=== PATIENT | male | born 1945 | race Caucasian/White ===

== ENCOUNTER 2020-03-30 11:11 | Outpatient (REF) | payer MEDICARE, SELFPAY ==
[2020-03-30 13:31] LABS: INTERNATIONAL NORM RATIO 2.3 (0.9-1.1); Prothrombin Time 27.4 SEC (10.8-13.0)
[2020-03-30 13:34] LABS: Partial Thromboplastin Time 48.9 SEC (24.1-38.0)
== END 2020-03-30 11:12 | disposition home or self-care (01) ==
LOC: HO.LABR 11:11
PROVIDERS: PCP Internal Medicine; Visit Provider Internal Medicine Cardiovascular Disease
DX: I48.19 Other persistent atrial fibrillation (principal); I48.20 Chronic atrial fibrillation, unspecified
CPT/HCPCS: 36415; 85610; 85730

== ENCOUNTER 2020-04-18 06:08 | Outpatient (REF) | payer MEDICARE, SELFPAY ==
[2020-04-18 07:37] LABS: Imm Gran Abs Auto 0.02 X10*3/uL (0.00-0.03); Imm Gran Pct Auto 0.3 % (0.0-0.4); MANUAL DIFF FLAG SCAN; PLT CLUMP 1; SCAN SMEAR FLAG 1
[2020-04-18 07:39] LABS: Basophils Percent Auto 0.2 % (0-2); Eosinophils Absolute Auto 0.1 X10*3/uL (0.0-0.4); Eosinophils Percent Auto 2.1 % (0-4); Hematocrit 40.8 % (42-52); Hemoglobin 13.9 g/dl (14.0-18.0); Lymphocytes Absolute Auto 1.9 X10*3/uL (1.2-4.9); Lymphocytes Percent Auto 32.9 % (20-40); Mean Corpuscular HGB Conc 34.1 g/dl (31.0-36.0); Mean Corpuscular Hemoglobin 30.9 pg (27.0-33.0); Mean Corpuscular Volume 90.7 fL (80-98); Mean Platelet Volume 11.2 fL (9.4-12.4); Monocytes Absolute Auto 0.5 X10*3/uL (0.1-1.2); Monocytes Percent Auto 8.9 % (2-11); Neutrophils Absolute Auto 3.2 X10*3/uL (2.0-8.3); Neutrophils Percent Auto 55.6 % (45-73); Platelet Count 131 X10*3/uL (160-400); Red Cell Distribution Width 14.6 % (11.0-16.0); White Blood Count 5.7 X10*3/uL (4.8-10.8)
[2020-04-18 07:54] LABS: Alanine Aminotransferase 35 U/L (0-40); Albumin Level 4.2 g/dL (3.5-5.0); Alkaline Phosphatase 88 U/L (39-117); Anion Gap 12 (12-20); Aspartate Amino Transferase 30 U/L (5-37); Bilirubin Total 0.6 mg/dL (0.0-1.0); Blood Urea Nitrogen 27 mg/dL (9-16); Calcium 9.9 mg/dL (8.4-10.2); Carbon Dioxide 26 mmol/L (22-29); Chloride 104 mmol/L (96-108); Cholesterol 141 mg/dL; Estimated Glomerular Filt Rate 46; Glucose Fasting 99 mg/dL (60-99); HDL Cholesterol 33 mg/dL; LDL Cholesterol Calculated 63 mg/dl; Potassium 4.1 mmol/l (3.3-5.1); Sodium 138 mmol/L (135-145); Triglycerides 228 mg/dL
[2020-04-18 08:15] LABS: PSA,Total (Free>4and<10) 3.67 ng/mL (0.00-4.00); Thyroid Stimulating Hormone 1.94 uIU/mL (0.32-4.0); Vitamin D 25-OH Total 34.4 ng/mL (>30)
== END 2020-04-18 06:09 | disposition home or self-care (01) ==
LOC: HO.LAB 06:08
PROVIDERS: PCP Internal Medicine; Visit Provider Internal Medicine
DX: I10 Essential (primary) hypertension (principal); E78.5 Hyperlipidemia, unspecified; E03.9 Hypothyroidism, unspecified; M1A.9XX0 Chronic gout, unspecified, without tophus (tophi); N40.0 Benign prostatic hyperplasia without lower urinary tract symptoms; I48.20 Chronic atrial fibrillation, unspecified; K21.9 Gastro-esophageal reflux disease without esophagitis; N20.0 Calculus of kidney; K40.90 Unilateral inguinal hernia, without obstruction or gangrene, not specified as recurrent
CPT/HCPCS: 36415; 80053; 80061; 82306; 84153; 84443; 85025

== ENCOUNTER → 2020-04-24 15:21 | Outpatient (BNVA) | payer MEDICARE, SELFPAY | PROVIDERS: PCP Internal Medicine; Visit Provider Surgery | DX: K40.90 Unilateral inguinal hernia, without obstruction or gangrene, not specified as recurrent (principal) | CPT/HCPCS: 99202 ==

== ENCOUNTER 2020-06-11 11:32 | Outpatient (REF) | payer MEDICARE, SELFPAY ==
[2020-06-11 12:20] LABS: COVID-19 Test Negative (Negative)
== END 2020-06-11 11:33 | disposition home or self-care (01) ==
LOC: HO.LAB 11:32
PROVIDERS: Visit Provider Internal Medicine
DX: Z20.822 Contact with and (suspected) exposure to COVID-19 (principal)
CPT/HCPCS: 36415; 87635; C9803

== ENCOUNTER → 2020-08-01 09:26 | Outpatient (BNVA) | payer MEDICARE, SELFPAY | PROVIDERS: PCP Internal Medicine; Visit Provider Surgery | DX: K40.90 Unilateral inguinal hernia, without obstruction or gangrene, not specified as recurrent (principal) | CPT/HCPCS: 99212 ==

== ENCOUNTER 2020-09-20 06:02 | Day surgery (SDC) | payer MEDICARE, SELFPAY ==
[2020-09-20 06:10] VITALS: BP 137/84; PULSE 102; RESP 18; TEMP 36.4; O2SAT 98; BMI 28.7
[2020-09-20] MEDS: Lactated Ringers 1,000 ML 100 ML IVCONT (06:34)
[2020-09-20 06:42] LABS: INTERNATIONAL NORM RATIO 1.1 (0.9-1.1); Prothrombin Time 12.5 SEC (10.8-13.0)
--- NOTE | 2020-09-20 07:24 | HO.ANESPROP2 ---
FORM[facility]LY [facility] Active Problems Active Problems: All Active Problems (Updated 09/13/20 @ 14:32 by Priyanka Lowe) Left inguinal hernia (Acute) Nephrolithiasis (Acute) Atrial fibrillation (Acute) Past Medical History Medical History (Updated 09/13/20 @ 14:32 by Priyanka Lowe) Atrial fibrillation Hypertension Hypothyroid Nephrolithiasis On anticoagulant therapy Family History Family History Mother History of lung cancer Surgical History Surgical History (Updated 09/13/20 @ 14:32 by Priyanka Lowe) History of arthroscopy of left knee History of inguinal hernia repair History of umbilical hernia repair History of vasectomy Social History Social History Alcohol intake: current Alcohol intake frequency: a few times a week Smoking Status: Never smoker Smoking Quit Date: 1969 Use of substances other than those prescribed or required for medical reasons: No Have you been hit, kicked, punched, or otherwise hurt by someone within the past year? If so, by whom?: No Advance Directives Information Provided: No Recently lost weight without trying: No Meds Allergies Allergy/AdvReac Type Severity Reaction Status Date / Time No Known Allergies Allergy Verified 09/20/20 06:23 [No Known Allergies*] Active Medications: Current Medications Generic Name Dose Route Start Last Admin Trade Name Freq PRN Reason Stop Dose Admin Lactated Ringer's 1,000 mls @ 20 mls/hr 09/19/20 14:15 Lr IVCONT .Q24H LINDA Lactated Ringer's 1,000 mls @ 100 mls/hr 09/20/20 06:00 09/20/20 06:34 Lr IVCONT 100 mls/hr .Q10H LINDA Administration Home Medications Medication Instructions Recorded Confirmed Last Taken Type allopurinol 300 mg tablet 300 mg PO DAILY 04/24/20 09/13/20 Unknown History atenolol 25 mg tablet 37.5 mg PO DAILY 04/24/20 09/13/20 09/20/20 05:00 History atorvastatin 20 mg tablet 20 mg PO DAILY 04/24/20 09/13/20 Unknown History fenofibrate nanocrystallized 48 mg 48 mg PO DAILY 04/24/20 09/13/20 Unknown History tablet levothyroxine 75 mcg tablet 75 mcg PO DAILY 04/24/20 09/13/20 09/20/20 05:00 History losartan 100 mg tablet 50 mg PO DAILY tab 04/24/20 09/13/20 Unknown History omeprazole 20 mg capsule,delayed 20 mg PO DAILY 04/24/20 09/13/20 09/20/20 05:00 History release tamsulosin 0.4 mg capsule 0.4 mg PO DAILY 04/24/20 09/13/20 Unknown History warfarin 5 mg tablet 5 mg PO DAILY 04/24/20 09/20/20 09/13/20 History Exam Exam Date and Time: September 20, 2020 0724 Height,Weight and Vital Signs: Height 5 ft 7.5 in Weight 84.368 kg Last Vital Signs Temp 97.6 F 09/20/20 06:10 Pulse 102 H 09/20/20 06:10 Resp 18 09/20/20 06:10 BP 137/84 09/20/20 06:10 Pulse Ox 98 09/20/20 06:10 Pertinent Lab Results Pertinent Lab Results: Laboratory Tests 09/20/20 06:16 PT 12.5 D INR 1.1 Airway Mallampati Class: III TM Dist: >3cm Neck ROM: Full Loose/Missing/Broken Teeth: Yes Heart: Afib Assessment and Plan Assessment Anesthesia Assessment: Anesthesia Plan Discussed and Chart Reviewed Final Anesthetic Review NPO: Yes ASA Class: III Final Preanesthetic Review: No Changes in Pt Med Stat, Meds/Allgs Chart Reviewed, Consent Obtained/Reviewed and Anes Risks/Benef Reviewed Patient Risk: Intermediate Procedure Risk: Low Anesthetic Plan Anesthetic Plan: GA Disposition: Standard PACU
--- NOTE | 2020-09-20 09:18 | P.OP_ITS ---
Operative Note Operative Note Date of Service: 09/20/20 Narrative: Preoperative diagnosis: Left inguinal hernia Postoperative diagnosis: Same Procedure: Repair of left inguinal hernia Surgeon: Zenon Allen MD Network Management Specialist: None Anesthesia: General LMA Indications for procedure: 75-year-old male patient with a previous history of a right inguinal hernia now presenting with a lump in the left groin consistent with a left inguinal hernia Operative findings:. Left direct inguinal hernia Specimen: None Estimated blood loss: 10 mL Complications: None Procedure details: Patient was brought to the OR and placed in a supine position. After administering general anesthesia the patient's abdomen was prepped with ChloraPrep and draped in a sterile fashion. A surgical time-out was called the consent confirmed. Patient received preoperative antibiotics and Venodyne boots were in place. Local anesthesia was applied to the periumbilical skin to the right of midline and a transverse incision made with scalpel. A 10 mm incision was then created. The incision was carried down to the anterior rectus sheath. This was then incised with a scalpel dissection with a ribbon retractor was used to enter into the preperitoneal space. A dilating balloon was then inserted and directed towards the pubic tubercle. This was then inflated with 25 pumps of the bulb. This was left in place for 30 seconds and then deflated. The balloon was removed and a structural balloon inserted. This was inflated with 4 pumps of the bulb. This was then retracted into place and locked. CO2 was then insufflated to a pressure of 15 mm of mercury. Two 5 mm trocars were placed in the lower midline. Patient was placed in a Trendelenburg position and dissection begun from medial to lateral starting at the pubic tubercle and extending laterally. A direct left inguinal hernia was identified and the contents reduced. Dissection along the internal ring however was difficult due to patient breathing. After a period of dissection procedure was aborted due to lack of abdominal relaxation. Procedure was then converted to an open hernia repair. Local anesthesia consisting of 0.5% Sensorcaine with epinephrine was infiltrated over the left inguinal ligament. Incision was then made in oblique fashion over the inguinal ligament. This carried out through subcutaneous tissue past Marina's fashion up to the external oblique aponeurosis. Additional local was infiltrated below the external oblique aponeurosis. This was then incised with a scalpel wide with the Metzenbaum scissors. Spermatic cord was then dissected free from the surrounding inguinal canal and retracted using a Raman drain. The floor of the inguinal canal was examined and was found to have a direct inguinal hernia. Fibers of the cremasteric muscle were and no indirect sac could be identified. Fibers of the internal oblique aponeurosis and transversalis aponeurosis were divided with electrocautery and the preperitoneal space entered. This was then widened with an open Ray-Carly sponge. A large PHS mesh was then obtained. The circular underlay was deployed into the preperitoneal space. It was then secured to the pubic tubercle, conjoined tendon, and shelving edge of the inguinal ligament using 0 Polysorb sutures. A slit was made in the mesh and the mesh wrapped around the spermatic cord at the internal ring. This was secured to the shelving edge using 0 Polysorb suture. Wounds were then irrigated and suctioned dry. No bleeding was identified at this time. The periumbilical incisions fascia was closed using a [id number] 0 Polysorb suture. External oblique aponeurosis was then closed using a running 2 0 Polysorb suture. Marina's fascia and dermis reapproximated using interrupted 3-0 Polysorb sutures. Skin was then closed using a running subcuticular 4-0 Polysorb suture. Steri-Strips 2 x 2 gauze and Tegaderm were then applied. The patient tolerated the procedure well. Sponge, instrument, needle counts reported as correct. Patient was transferred to PACU in stable condition.
[2020-09-20 09:24] VITALS: BP 127/77; PULSE 96; RESP 16; TEMP 36.2; O2SAT 95
[2020-09-20 09:29] VITALS: BP 123/78; PULSE 107; RESP 18; O2SAT 94
[2020-09-20 09:34] VITALS: BP 121/86; PULSE 95; RESP 16; O2SAT 94
[2020-09-20 09:39] VITALS: BP 124/87; PULSE 104; RESP 20; O2SAT 95
[2020-09-20 09:54] VITALS: BP 119/77; PULSE 88; RESP 18; O2SAT 95
== END 2020-09-20 10:46 | disposition home or self-care (01) ==
PROVIDERS: Internal Medicine; PCP Internal Medicine; Visit Provider Surgery
PROC: (CPT 49650; principal; 2020-09-20 07:30)
DX: K40.90 Unilateral inguinal hernia, without obstruction or gangrene, not specified as recurrent (principal); Z53.31 Laparoscopic surgical procedure converted to open procedure; I10 Essential (primary) hypertension; I48.19 Other persistent atrial fibrillation; Z79.01 Long term (current) use of anticoagulants; Z87.891 Personal history of nicotine dependence; Z79.899 Other long term (current) drug therapy
CPT/HCPCS: 49505; 36415; 85610; C1727; C1781; J0690; J1100; J1170; J2370; J2405; J3010

== ENCOUNTER → 2020-10-04 10:35 | Outpatient (BNVA) | payer MEDICARE, SELFPAY | PROVIDERS: PCP Internal Medicine; Visit Provider Surgery | DX: Z48.815 Encounter for surgical aftercare following surgery on the digestive system (principal); Z87.19 Personal history of other diseases of the digestive system | CPT/HCPCS: 99212 ==

== ENCOUNTER → 2020-10-25 10:13 | Outpatient (BNVA) | payer MEDICARE, SELFPAY | PROVIDERS: PCP Internal Medicine; Visit Provider Surgery | DX: Z48.815 Encounter for surgical aftercare following surgery on the digestive system (principal); Z87.19 Personal history of other diseases of the digestive system | CPT/HCPCS: 99212 ==

== ENCOUNTER 2021-12-06 06:33 | Outpatient (REF) | payer MEDICARE, SELFPAY ==
[2021-12-06 06:54] LABS: MANUAL DIFF FLAG NO
[2021-12-06 07:14] LABS: Basophils Percent Auto 0.2 % (0-2); Eosinophils Absolute Auto 0.1 X10*3/uL (0.0-0.4); Eosinophils Percent Auto 0.8 % (0-4); Hematocrit 39.4 % (42.0-52.0); Hemoglobin 13.5 g/dl (14.0-18.0); Imm Gran Abs Auto 0.04 X10*3/uL (0.00-0.03); Imm Gran Pct Auto 0.5 % (0.0-0.4); Lymphocytes Absolute Auto 1.5 X10*3/uL (1.2-4.9); Mean Corpuscular HGB Conc 34.3 g/dl (31.0-36.0); Mean Corpuscular Volume 90.6 fL (80.0-98.0); Mean Platelet Volume 10.3 fL (9.4-12.4); Monocytes Percent Auto 11.5 % (2-11); Neutrophils Absolute Auto 6.1 x10*3/uL (2.0-8.3); Platelet Count 140 X10*3/uL (160-400); Red Blood Count 4.35 X10*6/uL (4.60-5.80); Red Cell Distribution Width 14.3 % (11.0-16.0); White Blood Count 8.8 X10*3/uL (4.8-10.8)
[2021-12-06 07:55] LABS: Alanine Aminotransferase 28 U/L (0-40); Albumin Level 4.2 g/dL (3.5-5.0); Alkaline Phosphatase 77 U/L (39-117); Anion Gap 14 (12-20); Aspartate Amino Transferase 30 U/L (5-37); Blood Urea Nitrogen 31 mg/dL (9-16); Calcium 10.1 mg/dL (8.4-10.2); Carbon Dioxide 28 mmol/L (22-29); Chloride 100 mmol/L (96-108); Cholesterol 140 mg/dL; Estimated Glomerular Filt Rate 41; Glucose Fasting 107 mg/dL (60-99); HDL Cholesterol 44 mg/dL; LDL Cholesterol Calculated 79 mg/dl; Potassium 4.1 mmol/L (3.3-5.1); Sodium 138 mmol/L (135-145); Total Protein 7.1 g/dL (6.5-8.0); Triglycerides 89 mg/dL; Uric Acid 6.8 mg/dL (3.4-7.0)
[2021-12-06 08:13] LABS: Prostate Specific Antigen 2.65 ng/mL (<0.05-4.0); Thyroid Stimulating Hormone 2.84 uIU/mL (0.32-4.0); Vitamin D 25-OH Total 47.3 ng/mL (>30)
[2021-12-08 05:02] LABS: Lyme Abs Screen <0.90 index
[2021-12-13 05:46] LABS: A. Phagocytophilum Ab IgG <1:64 (<1:64); A. Phagocytophilum Ab IgM <1:20 (<1:20); E. Chaffeensis Ab IgG <1:64 (<1:64); E. Chaffeensis Ab IgM <1:20 (<1:20)
== END 2021-12-06 06:34 | disposition home or self-care (01) ==
LOC: HO.LAB 06:33
PROVIDERS: Absent Provider Otolaryngology; PCP Internal Medicine; Visit Provider Internal Medicine
DX: Z12.5 Encounter for screening for malignant neoplasm of prostate (principal); A69.20 Lyme disease, unspecified; Z00.00 Encounter for general adult medical examination without abnormal findings; I48.11 Longstanding persistent atrial fibrillation; E78.5 Hyperlipidemia, unspecified; E03.9 Hypothyroidism, unspecified; K21.9 Gastro-esophageal reflux disease without esophagitis; N40.0 Benign prostatic hyperplasia without lower urinary tract symptoms; M1A.9XX0 Chronic gout, unspecified, without tophus (tophi); E55.9 Vitamin D deficiency, unspecified
CPT/HCPCS: 36415; 80053; 80061; 82306; 84153; 84443; 84550; 85025; 86617; 86618; 86666

== ENCOUNTER 2021-12-30 06:11 | Outpatient (REF) | payer MEDICARE, SELFPAY ==
[2021-12-30 06:22] LABS: MANUAL DIFF FLAG NO
[2021-12-30 07:30] LABS: Basophils Percent Auto 0.4 % (0-2); Eosinophils Absolute Auto 0.1 X10*3/uL (0.0-0.4); Eosinophils Percent Auto 2.1 % (0-4); Hematocrit 39.6 % (42.0-52.0); Hemoglobin 13.7 g/dl (14.0-18.0); Imm Gran Abs Auto 0.01 X10*3/uL (0.00-0.03); Imm Gran Pct Auto 0.2 % (0.0-0.4); Lymphocytes Absolute Auto 1.8 X10*3/uL (1.2-4.9); Lymphocytes Percent Auto 32.1 % (20-40); Mean Corpuscular HGB Conc 34.6 g/dl (31.0-36.0); Mean Corpuscular Hemoglobin 31.6 pg (27.0-33.0); Mean Corpuscular Volume 91.5 fL (80.0-98.0); Mean Platelet Volume 11.5 fL (9.4-12.4); Monocytes Absolute Auto 0.5 X10*3/uL (0.1-1.2); Monocytes Percent Auto 8.6 % (2-11); Neutrophils Absolute Auto 3.2 x10*3/uL (2.0-8.3); Neutrophils Percent Auto 56.6 % (45-73); Platelet Count 108 X10*3/uL (160-400); Red Blood Count 4.33 X10*6/uL (4.60-5.80); Red Cell Distribution Width 14.7 % (11.0-16.0); White Blood Count 5.6 X10*3/uL (4.8-10.8)
[2021-12-30 07:53] LABS: Alanine Aminotransferase 20 U/L (0-40); Albumin Level 4.2 g/dL (3.5-5.0); Alkaline Phosphatase 84 U/L (39-117); Anion Gap 13 (12-20); Aspartate Amino Transferase 26 U/L (5-37); Bilirubin Total 0.8 mg/dL (0.0-1.0); Blood Urea Nitrogen 24 mg/dL (9-16); Calcium 9.7 mg/dL (8.4-10.2); Carbon Dioxide 27 mmol/L (22-29); Chloride 105 mmol/L (96-108); Cholesterol 135 mg/dL; Estimated Glomerular Filt Rate 48; Glucose Fasting 97 mg/dL (60-99); HDL Cholesterol 36 mg/dL; LDL Cholesterol Calculated 71 mg/dl; Potassium 3.9 mmol/L (3.3-5.1); Sodium 141 mmol/L (135-145); Total Protein 6.8 g/dL (6.5-8.0); Triglycerides 141 mg/dL
[2021-12-30 08:16] LABS: Thyroid Stimulating Hormone 2.83 uIU/mL (0.32-4.0)
== END 2021-12-30 06:12 | disposition home or self-care (01) ==
LOC: HO.LAB 06:11
PROVIDERS: PCP Internal Medicine; Visit Provider Internal Medicine
DX: E03.9 Hypothyroidism, unspecified (principal); E78.5 Hyperlipidemia, unspecified; I10 Essential (primary) hypertension
CPT/HCPCS: 36415; 80053; 80061; 84443; 85025

== ENCOUNTER 2023-02-24 06:44 | Outpatient (REF) | payer MEDICARE, SELFPAY ==
[2023-02-24 07:03] LABS: MANUAL DIFF FLAG NO
[2023-02-24 07:41] LABS: Basophils Percent Auto 0.3 % (0-2); Eosinophils Absolute Auto 0.1 X10*3/uL (0.0-0.4); Eosinophils Percent Auto 1.9 % (0-4); Hemoglobin 14.2 g/dl (14.0-18.0); Imm Gran Abs Auto 0.02 X10*3/uL (0.00-0.03); Imm Gran Pct Auto 0.3 % (0.0-0.4); Lymphocytes Percent Auto 31.4 % (20-40); Mean Corpuscular HGB Conc 33.8 g/dl (31.0-36.0); Mean Corpuscular Volume 91.7 fL (80.0-98.0); Mean Platelet Volume 10.4 fL (9.4-12.4); Monocytes Absolute Auto 0.6 X10*3/uL (0.1-1.2); Monocytes Percent Auto 9.8 % (2-11); Neutrophils Absolute Auto 3.5 x10*3/uL (2.0-8.3); Neutrophils Percent Auto 56.3 % (45-73); Platelet Count 135 X10*3/uL (160-400); Red Blood Count 4.58 X10*6/uL (4.60-5.80); Red Cell Distribution Width 14.4 % (11.0-16.0); White Blood Count 6.2 X10*3/uL (4.8-10.8)
[2023-02-24 08:04] LABS: Alanine Aminotransferase 25 U/L (0-40); Albumin Level 4.2 g/dL (3.5-5.0); Alkaline Phosphatase 91 U/L (39-117); Anion Gap 14 (12-20); Aspartate Amino Transferase 30 U/L (5-37); Bilirubin Total 0.7 mg/dL (0.0-1.0); Blood Urea Nitrogen 26 mg/dL (9-16); Calcium 10.4 mg/dL (8.4-10.2); Carbon Dioxide 26 mmol/L (22-29); Chloride 106 mmol/L (96-108); Cholesterol 140 mg/dL (<200); Estimated Glomerular Filt Rate 52; Glucose Fasting 98 mg/dL (60-99); HDL Cholesterol 33 mg/dL (>40); LDL Cholesterol Calculated 62 mg/dL (<100); Potassium 4.1 mmol/L (3.3-5.1); Sodium 142 mmol/L (135-145); Total Protein 7.1 g/dL (6.5-8.0); Triglycerides 228 mg/dL (<150); Uric Acid 6.2 mg/dL (3.4-7.0)
[2023-02-24 09:11] LABS: Appearance Urine Clear; Color Urine Yellow; Glucose Urine UA Negative (Negative); Leukocyte Esterase Urine Negative (Negative); Nitrite Urine Negative (Negative); Urine Blood Negative (Negative); Urine Ketones Negative (Negative); Urine Protein Negative (Neg-Trace)
== END 2023-02-24 06:45 | disposition home or self-care (01) ==
LOC: HO.LAB 06:44
PROVIDERS: PCP Internal Medicine; Visit Provider Internal Medicine
DX: I10 Essential (primary) hypertension (principal); E78.5 Hyperlipidemia, unspecified; E03.9 Hypothyroidism, unspecified; I48.11 Longstanding persistent atrial fibrillation; M1A.9XX0 Chronic gout, unspecified, without tophus (tophi)
CPT/HCPCS: 36415; 80053; 80061; 81003; 84443; 84550; 85025

== ENCOUNTER 2024-08-11 15:01 | Outpatient (REF) | payer MEDICARE, SELFPAY ==
--- NOTE | ~2024-08-11 | XR_ITS ---
EXAMINATION: XR CHEST CLINICAL INFORMATION: Chronic cough COMPARISON: None available. TECHNIQUE: 2 views of the chest were obtained. FINDINGS: No significant abnormality is noted involving the heart, lungs, mediastinum, bony thorax or soft tissues. XR/XR chest 2V IMPRESSION: Unremarkable chest examination. Electronically signed by: Reuben Huffman MD 08/11/2024 03:59 PM EDT RP
--- OUTSIDE RECORDS SUMMARY | 2024-08-11 18:49 | XMS_ITS | Clinical Summary ---
Author Organization [facility] Address [address] [place] [phone] Phone Care Team Providers Care [employer] Grade Name Role Phone Dhruv Dolan DO Primary Care Provider [phone] Allergies No known active allergies Medications atenolol (TENORMIN) 25 MG tablet Take 1.5 tablets by mouth 1 (one) time each day Active atorvastatin (LIPITOR) 20 MG tablet Take 1 tablet by mouth at bed time Active Krill Oil ([place]-3) 500 MG capsule Active levothyroxine (SYNTHROID, LEVOTHROID) 75 MCG tablet Take 1 tablet by mouth 1 (one) time each day Active omeprazole (PriLOSEC) [address] capsule Take 1 capsule by mouth 1 (one) time each day 09/23/2017 Active Eliquis 5 MG tablet Take 5 mg by mouth 2 (two) times a day 08/13/2021 Active finasteride (PROSCAR) 5 MG tablet Take 5 mg by mouth at bed time 01/05/2022 Active Cholecalciferol 50 MCG (1999 UT) capsule Take by mouth Active tamsulosin (FLOMAX) 0.4 MG 24 hr capsule Take 1 capsule (0.4 mg total) by mouth 1 (one) time each day 90 capsule 3 08/14/2023 Active allopurinol (ZYLOPRIM) 300 MG tablet TAKE 1 TABLET BY MOUTH EVERY DAY 90 tablet 3 01/11/2024 Active fenofibrate (TRICOR) 48 MG tablet TAKE 1 TABLET BY MOUTH EVERY DAY 90 tablet 3 01/11/2024 Active allopurinol (ZYLOPRIM) 300 MG tablet Take 1 tablet (300 mg total) by mouth 1 (one) time each day 90 tablet 3 01/11/2024 Active Jardiance 10 MG tablet Take 10 mg by mouth 1 (one) time each day 11/11/2023 Active hydroCHLOROthia zide 12.5 MG tablet TAKE 1 TABLET(12.5 MG) BY MOUTH EVERY DAY 90 tablet 3 04/05/2024 Active Active Problems Problem Noted Date Diagnosed Date Coronary arteriosclerosis 05/28/20222022 Overview (05/06/2023): Last Assessment & Plan: He does have known coronary artery disease which are reviewed with him by the coronary CTA. This time his functional capacity appears to be stable I do think we need to reevaluate this we will have him go for stress echocardiogram. Depending on what this shows we may or may not need to proceed with a cardiac cath. I did tell him if he ever any discomforts in his chest that lasts for 15 to 20 minutes to call 911. History of calculus of kidney 08/21/2021 Dyslipidemia 08/21/2021 Abnormal cardiovascular function study 05/06/2023 Overview (05/06/2023): Last Assessment & Plan: Patient has an abnormal stress test indicating increased TID ratio. He has very minimal dyspnea which seems to have been an isolated incident. We discussed working up the abnormal stress test with either a diagnostic left heart cardiac catheterization or coronary CTA. We discussed risk benefits of both. At this time we elected to pursue a coronary CTA for further delineation. He understands if this is abnormal this may progress into a diagnostic cardiac catheterization. Paroxysmal atrial fibrillation 02/13/2021 Aortic valve stenosis 01/11/2021 05/06/2023 Overview (05/06/2023): Last Assessment & Plan: Echocardiogram in the past did demonstrate normal LV function with mild aortic stenosis and mild mitral regurgitation. The aortic stenosis does not sound like it is progressed significantly but he will be having a stress echo. 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 Acute nontraumatic kidney injury 08/14/2020 Anemia in chronic kidney disease 08/14/2020 Stage 3b chronic kidney disease 08/14/2020 Gout, not otherwise specified 08/14/2020 Secondary hyperparathyroidism 08/14/2020 Vitamin D deficiency, not otherwise specified Localized edema 08/14/2020 Resolved Problems Problem Noted Date Diagnosed Date Resolved Date Hypertensive disorder 08/21/20212021 Hyperlipidemia 01/11/2021 05/06/2023 07/29/2023 Overview (05/06/2023): Last Assessment & Plan: For quite some time since he had a lipid profile done I did explain to him given his coronary calcification/coronary disease is important we try to keep the LDL cholesterol below 70. I did give him a slip for lipid profile. Shortness of breath 01/11/2021 05/06/2023 07/29/19 24 Overview (05/06/2023): Last Assessment & Plan: The etiology of his dyspnea is unclear at this time. He also has increased fatigue. I am going to order an exercise nuclear stress test at first available to rule out ischemia. He should hold his atenolol the morning of. I am also going to order a new transthoracic echocardiogram. He does have mild aortic stenosis from 2018 that does sound more moderate on exam. His symptoms may be from progressive valve disease. I do not believe his symptoms are related to uncontrolled heart rates given his recent Holter monitor. Glomerulonephritis 08/14/2020 Preprocedural cardiovascular examination done 06/27/1905/06/2023 07/29/2023 Overview (05/06/2023): Last Assessment & Plan: The patient is thinking having left inguinal hernia surgery. This time she has no chest pain or shortness of breath. Functional capacity appears to be stable. He does not have aortic stenosis on exam. I did explain to him that if a person can do a certain amount of physical activity, which she states he can, but that he will be at acceptable risk for undergoing a surgical procedure. He states he understands Encounters Date Type Department Care Team Description 07/29/2024 Orders Only [facility] [address] [id number] Chaparro Arroyo MD from Last 3 Months Immunizations Name Administration Dates Next Due Influenza Split High Dose Preservative Free IM 03/01/2019 Influenza TIV (IM) 03/15/2018,04/13/2013 Influenza, Unspecified 02/01/2020,2018,03/19/2018,2016 Pfizer SARS-COV-2 06/26/2020,06/05/2020 Tdap 02/25/2015 Family History Medical History Relation Comments Diabetes Father Heart disease Father Hypertension Father Cancer Mother Relation Status Comments Father Mother Social History Tobacco Use Types Packs/Day Years Used Date Smoking Tobacco: Never Smokeless Tobacco: Never Tobacco Cessation:Counseling Given: No Alcohol Use Standard Drinks/Week Comments Yes 0 (1 standard drink = 0.6 oz pure alcohol) Alcoholic Drinks/day: Occasional social drink Sex and Gender Information Value Date Recorded Sex Assigned at Not on file Legal Sex Male 5:00 PM EST Gender Identity Not on file Sexual Orientation Not on file Last Filed Vital Signs Vital Sign Reading Time Taken Comments Blood Pressure 150/81 01/28/2024 8:40 AM EDT Pulse 66 01/28/2024 8:40 AM EDT Temperature - - Respiratory Rate - - Oxygen Saturation 98% 01/28/2024 8:40 AM EDT Inhaled Oxygen Concentration - - Weight 82.4 kg (181 lb 9.6 oz) 01/28/2024 8:40 A M EDT Height 170.2 cm (5' 7 ) 01/28/2024 8:40 AM EDT Body Mass Index 28.44 01/28/2024 8:40 AM EDT Plan of Treatment Upcoming Encounters Date Type Department Care Team (Late st Contact Info) Description 08/17/2024 9:20 AM EDT Office Visit [facility] [address] [phone] Chaparro Arroyo MD [address] [phone] Health Maintenance Due Date Last Done Comments Pneumococcal Vaccine: 65+ Years (1 of 2 - PCV) 1951 Influenza Vaccine (#1) 2024 0, 03/30/2019, 03/01/2019, Additional history exists Hepatitis B Vaccine Aged Out No longe r eligible based on patient's age to complete this topic Procedures Procedure Name Priority Date/Time Associated Diagnosis Comments PTH, INTACT Routine 07/29/2024 9:41 AM EST MAGNESIUM Routine 07/29/2024 9:41 AM EST PHOSPHATE ( PHOSPHORUS) Routine 07/29/2024 9:41 AM EST URIC ACID Routine 07/29/2024 9:41 AM EST VITAMIN D 25 HYDROXY Routine 07/29/2024 9:41 AM EST HEMOGLOBIN A1C Routine 07/29/2024 9:41 AM EST PROTEIN / CREATININE RATIO, URINE Routine 07/29/2024 9:41 AM EST COMPREHENSIVE METABOLIC PANEL Routine 07/29/2024 9:41 AM EST CBC AND DIFFERENTIAL Routine 07/29/2024 9:41 AM EST from Last 3 Months Results * Protein, Total, Random Urine w/Creatinine (Protein/Creat Ratio) (07/29/2024 9:41 AM EST) Creatinine, Ur 68.3 Not Estab. mg/dL [facility] Protein, Ur 8.3 Not Estab. mg/dL [facility] Urine Protein/Creatin ine Ratio 122 0 - 200 mg/g creat [facility] 07/29/2024 9:41 AM EST 07/29/2024 Chaparro Arroyo MD LAB URINE ORDERABLES Final Re sult Performing Organization Address City/[facility]/ZIP Co de Phone Number [facility] [address] [place] [address] * Vitamin D 25 Hydroxy (07/29/2024 9:41 AM EST) Vitamin D, 25-OH, Total 37.9 30.0 - 100.0 ng/mL [facility] Comment: Vitamin D deficiency has been defined by the [place] of [employer] and an Endocrine Society practice guideline as a level of serum 25-OH vitamin D less than 20 ng/mL (1,2). The Endocrine Society went on to further define vitamin D insufficiency as a level between 21 and 29 ng/mL (2). 1. IOM ([place] of [employer]). 2010. Dietary reference ?? intakes for calcium and D. [place]: The ?? National Academies Press. 2. Mikaela MF, Chris NC, Elle VIDAL, et al. ?? Evaluation, treatment, and prevention of vitamin D ?? deficiency: an Endocrine Society clinical practice ?? guideline. JCEM. 2010; 96(7):1911-30. 07/29/2024 9:41 AM EST 07/29/2024 Chaparro Arroyo MD LAB BLOOD ORDERABLES Final Re sult [facility] [address] [place] [address] * (ABNORMAL) CBC and Differential (07/29/2024 9:41 AM EST) WBC 6.7 3.4 - 10.8 x10E3/uL [facility] RBC 5.11 4.14 - 5.80 x10E6/uL [facility] Hemoglobin 15.9 13.0 - 17.7 g/dL [facility] Hematocrit 48.3 37.5 - 51.0 % [facility] MCV 95 79 - 97 fL [facility] MCH 31.1 26.6 - 33.0 pg [facility] MCHC 32.9 31.5 - 35.7 g/dL [facility] RDW 15.0 11.6 - 15.4 % [facility] Platelets 140(L) 150 - 450 x10E3/uL [facility] Neutrophils Relative 57 Not Estab. % [facility] Lymphocytes Relative 31 Not Estab. % [facility] Monocytes 10 Not Estab. % [facility] Eosinophils Relative 2 Not Estab. % [facility] Basophils Relative 0 Not Estab. % [facility] Neutrophils Absolute 3.8 1.4 - 7.0 x10E3/uL [facility] Lymphocytes Absolute 2.1 0.7 - 3.1 x10E3/uL [facility] Monocytes Absolute 0.7 0.1 - 0.9 x10E3/uL [facility] Eosinophils Absolute 0.1 0.0 - 0.4 x10E3/uL [facility] Basophils Absolute 0.0 0.0 - 0.2 x10E3/uL [facility] Immature Granulocytes 0 Not Estab. % [facility] Immature Grans (Absolute) 0.0 0.0 - 0.1 x10E3/uL [facility] 07/29/2024 9:41 AM EST 07/29/2024 us Chaparro Arroyo MD LAB BLOOD ORDERABLES Final Re sult Performing Organization Address [facility] Co de Phone Number [facility] [address] [place] [address] * Uric Acid (07/29/2024 9:41 AM EST) Uric Acid 5.2 3.8 - 8.4 mg/dL [facility] Comment:Therapeutic target f or gout patients: <6.0 07/29/2024 9:41 AM EST 07/29/2024 us Chaparro Arroyo MD LAB BLOOD ORDERABLES Final Re sult Performing Organization Address [facility] Co de Phone Number [facility] [address] [place] [address] * (ABNORMAL) Phosphorus (07/29/2024 9:41 AM EST) Phosphorus 2.6(L) 2.8 - 4.1 mg/dL [facility] 07/29/2024 9:41 AM EST 07/29/2024 us Chaparro Arroyo MD LAB BLOOD ORDERABLES Final Re sult Performing Organization Address City/[facility] Co de Phone Number [facility] [address] [place] [address] * PTH, Intact (07/29/2024 9:41 AM EST) PTH 28 15 - 65 pg/mL [facility] 07/29/2024 9:41 AM EST 07/29/2024 us Chaparro Arroyo MD LAB BLOOD ORDERABLES Final Re sult Performing Organization Address [facility] Co de Phone Number [facility] [address] [place] [address] * Magnesium (07/29/2024 9:41 AM EST) Magnesium 2.1 1.6 - 2.3 mg/dL [facility] 07/29/2024 9:41 AM EST 07/29/2024 us Chaparro Arroyo MD LAB BLOOD ORDERABLES Final Re sult Performing Organization Address [facility] de Phone Number [facility] [address] [place] [address] * (ABNORMAL) Hemoglobin A1c (07/29/2024 9:41 AM EST) Hemoglobin A1C 5.8(H) 4.8 - 5.6 % [facility] Comment: ? Prediabetes: 5.7 - 6.4 ? Diabetes: >6.4 ? Glycemic control for adults with diabetes: <7.0 07/29/2024 9:41 AM EST 07/29/2024 us Chaparro Arroyo MD LAB BLOOD ORDERABLES Final Re sult Performing Organization Address [facility] Co de Phone Number [facility] [address] [place] [address] * (ABNORMAL) Comprehensive Metabolic Panel (07/29/2024 9:41 AM EST) BUN 27 8 - 27 mg/dL [facility] Sodium 138 134 - 144 mmol/L [facility] Potassium 3.9 3.5 - 5.2 mmol/L [facility] Chloride 100 96 - 106 mmol/L [facility] Bicarbonate (CO2) 24 20 - 29 mmol/L [facility] Glucose 100(H) 70 - 99 mg/dL [facility] Creatinine 1.51(H) 0.76 - 1.27 mg/dL [facility] eGFR CKD-EPI CR 2020 47(L) >59 mL/min/1.7 3 [facility] BUN/Creatinine Ratio 18 10 - 24 [facility] Calcium 10.7(H) 8.6 - 10.2 mg/dL [facility] Comment:Verified by repeat analysis Total Protein 7.1 6.0 - 8.5 g/dL [facility] Albumin 4.6 3.8 - 4.8 g/dL [facility] Globulin 2.5 1.5 - 4.5 g/dL [facility] Total Bilirubin 0.7 0.0 - 1.2 mg/dL [facility] Alkaline Phosphatase 98 44 - 121 IU/L [facility] AST (SGOT) 29 0 - 40 IU/L [facility] ALT (SGPT) 22 0 - 44 IU/L [facility] 07/29/2024 9:41 AM EST 07/29/2024 us Chaparro Arroyo MD LAB BLOOD ORDERABLES Final Re sult [facility] [address] [place] [phone] from Last 3 Months Insurance [facility] Care Teams [employer] Grade Relationship Specialty Start Date End Date Dhruv Dolan DO [address] [place] [address] PCP - General 06/11/20
--- OUTSIDE RECORDS SUMMARY | 2024-08-11 18:49 | XMS_ITS | Encounter Summary ---
Author Organization [facility] Address [address] [address] Phone Care Team Providers Care Planer Hand Name Role Phone Dhruv Dolan Primary Care Provider [phone] Encounter Details Date Type Department Care Team (Late st Contact Info) Description 07/29/2024 Orders Only [facility] [place] [id number] [phone] Chaparro Arroyo MD [address] [address] Social History Tobacco Use Types Packs/Day Years Used Date Smoking Tobacco: Never Smokeless Tobacco: Never Alcohol Use Standard Drinks/Week Comments Yes 0 (1 standard drink = 0.6 oz pure alcohol) Alcoholic Drinks/day: Occasional social drink Sex and Gender Information Value Date Recorded Sex Assigned at Not on file Legal Sex Male 5:00 PM EST Gender Identity Not on file Sexual Orientation Not on file documented as of this encounter Plan of Treatment Upcoming Encounters Date Type Department Care Team (Late st Contact Info) Description 08/17/2024 9:20 AM EDT Office Visit [facility] [address] [phone] Chaparro Arroyo MD [address] [address] documented as of this encounter Procedures Procedure Name Priority Date/Time Associated Diagnosis Comments PROTEIN / CREATININE RATIO, URINE Routine 07/29/2024 9:41 AM EST VITAMIN D 25 HYDROXY Routine 07/29/2024 9:41 AM EST CBC AND DIFFERENTIAL Routine 07/29/2024 9:41 AM EST URIC ACID Routine 07/29/2024 9:41 AM EST PHOSPHATE ( PHOSPHORUS) Routine 07/29/2024 9:41 AM EST PTH, INTACT Routine 07/29/2024 9:41 AM EST MAGNESIUM Routine 07/29/2024 9:41 AM EST HEMOGLOBIN A1C Routine 07/29/2024 9:41 AM EST COMPREHENSIVE METABOLIC PANEL Routine 07/29/2024 9:41 AM EST documented in this encounter Results * PTH, Intact (07/29/2024 9:41 AM EST) PTH 28 15 - 65 pg/mL [facility] 07/29/2024 9:41 AM EST 07/29/2024 us Chaparro Arroyo MD LAB BLOOD ORDERABLES Final Re sult [facility] [address] [place] [address] * Magnesium (07/29/2024 9:41 AM EST) Magnesium 2.1 1.6 - 2.3 mg/dL [facility] 07/29/2024 9:41 AM EST 07/29/2024 us Chaparro Arroyo MD LAB BLOOD ORDERABLES Final Re sult Performing Organization Address City/[facility]/ZIP Co de Phone Number [facility] [address] [place] [address] * (ABNORMAL) Phosphorus (07/29/2024 9:41 AM EST) Phosphorus 2.6(L) 2.8 - 4.1 mg/dL [facility] 07/29/2024 9:41 AM EST 07/29/2024 Chaparro Arroyo MD LAB BLOOD ORDERABLES Final Re sult Performing Organization Address [facility] Co de Phone Number [facility] [address] [place] [address] * Uric Acid (07/29/2024 9:41 AM EST) Uric Acid 5.2 3.8 - 8.4 mg/dL [facility] Comment:Therapeutic target f or gout patients: <6.0 07/29/2024 9:41 AM EST 07/29/2024 Chaparro Arroyo MD LAB BLOOD ORDERABLES Final Re sult Performing Organization Address [facility]/ZIP Co de Phone Number [facility] [address] [place] [address] * Vitamin D 25 Hydroxy (07/29/2024 9:41 AM EST) Vitamin D, 25-OH, Total 37.9 30.0 - 100.0 ng/mL [facility] Comment: Vitamin D deficiency has been defined by the [place] of [employer] and an Endocrine Society practice guideline as a level of serum 25-OH vitamin D less than 20 ng/mL (1,2). The Endocrine Society went on to further define vitamin D insufficiency as a level between 21 and 29 ng/mL (2). 1. IOM ([place] of [employer]). 2010. Dietary reference ?? intakes for calcium and D. [place]: The ?? National Academies Press. 2. Mikaela MF, Chris ARDON, Elle VIDAL, et al. ?? Evaluation, treatment, and prevention of vitamin D ?? deficiency: an Endocrine Society clinical practice ?? guideline. JCEM. 2010; 96(7):1911-30. 07/29/2024 9:41 AM EST 07/29/2024 Chaparro Arroyo MD LAB BLOOD ORDERABLES Final Re sult Performing Organization Address City/[facility] Co de Phone Number [email or web address] [address] [place] [address] * (ABNORMAL) Hemoglobin A1c (07/29/2024 9:41 AM EST) Hemoglobin A1C 5.8(H) 4.8 - 5.6 % [facility] Comment: ? Prediabetes: 5.7 - 6.4 ? Diabetes: >6.4 ? Glycemic control for adults with diabetes: <7.0 07/29/2024 9:41 AM EST 07/29/2024 Chaparro Arroyo MD LAB BLOOD ORDERABLES Final Re sult Performing Organization Address City/[facility] Co de Phone Number [facility] [address] [place] [address] * Protein, Total, Random Urine w/Creatinine (Protein/Creat Ratio) (07/29/2024 9:41 AM EST) Creatinine, Ur 68.3 Not Estab. mg/dL [facility] Protein, Ur 8.3 Not Estab. mg/dL [facility] Urine Protein/Creatin ine Ratio 122 0 - 200 mg/g creat [facility] 07/29/2024 9:41 AM EST 07/29/2024 us Chaparro Arroyo MD LAB URINE ORDERABLES Final Re sult [facility] [address] [place] [address] * (ABNORMAL) Comprehensive Metabolic Panel (07/29/2024 9:41 AM EST) BUN 27 8 - 27 mg/dL [facility] Sodium 138 134 - 144 mmol/L [facility] Potassium 3.9 3.5 - 5.2 mmol/L [facility] Chloride 100 96 - 106 mmol/L [facility] Bicarbonate (CO2) 24 20 - 29 mmol/L [facility] Glucose 100(H) 70 - 99 mg/dL [facility] Creatinine 1.51(H) 0.76 - 1.27 mg/dL [facility] eGFR CKD-EPI CR 2020 47(L) >59 mL/min/1.7 3 [facility] BUN/Creatinine Ratio 18 10 - 24 [facility] Calcium 10.7(H) 8.6 - 10.2 mg/dL [facility] Comment:Verified by repeat analysis Total Protein 7.1 6.0 - 8.5 g/dL [facility] Albumin 4.6 3.8 - 4.8 g/dL [facility] Globulin 2.5 1.5 - 4.5 g/dL [facility] Total Bilirubin 0.7 0.0 - 1.2 mg/dL [facility] Alkaline Phosphatase 98 44 - 121 IU/L [facility] AST (SGOT) 29 0 - 40 IU/L [facility] ALT (SGPT) 22 0 - 44 IU/L [facility] 07/29/2024 9:41 AM EST 07/29/2024 us Chaparro Arroyo MD LAB BLOOD ORDERABLES Final Re sult [facility] [address] [place] [address] * (ABNORMAL) CBC and Differential (07/29/2024 9:41 AM EST) WBC 6.7 3.4 - 10.8 x10E3/uL [facility] RBC 5.11 4.14 - 5.80 x10E6/uL [facility] Hemoglobin 15.9 13.0 - 17.7 g/dL [facility] Hematocrit 48.3 37.5 - 51.0 % [facility] MCV 95 79 - 97 fL [facility] MCH 31.1 26.6 - 33.0 pg [facility] MCHC 32.9 31.5 - 35.7 g/dL [facility] RDW 15.0 11.6 - 15.4 % [facility] Platelets 140(L) 150 - 450 x10E3/uL [facility] Neutrophils Relative 57 Not Estab. % [facility] Lymphocytes Relative 31 Not Estab. % [facility] Monocytes 10 Not Estab. % [facility] Eosinophils Relative 2 Not Estab. % [facility] Basophils Relative 0 Not Estab. % [facility] Neutrophils Absolute 3.8 1.4 - 7.0 x10E3/uL [facility] Lymphocytes Absolute 2.1 0.7 - 3.1 x10E3/uL [facility] Monocytes Absolute 0.7 0.1 - 0.9 x10E3/uL [facility] Eosinophils Absolute 0.1 0.0 - 0.4 x10E3/uL [facility] Basophils Absolute 0.0 0.0 - 0.2 x10E3/uL [facility] Immature Granulocytes 0 Not Estab. % [facility] Immature Grans (Absolute) 0.0 0.0 - 0.1 x10E3/uL [facility] 07/29/2024 9:41 AM EST 07/29/2024 us Chaparro Arroyo MD LAB BLOOD ORDERABLES Final Re sult [facility] [address] [place] [address] documented in this encounter Visit Diagnoses Not on filedocumented in this encounter Care Teams Planer Hand Relationship Specialty Start Date End Date Dhruv Dolan DO [address] [place] [address], [place] PCP - General 06/11/20 documented as of this encounter
--- OUTSIDE RECORDS SUMMARY | 2024-08-11 18:49 | XMS_ITS | Encounter Summary ---
Author Organization [facility] Address [address] [place] [address] Care Team Providers Care Buildings And Grounds Director Name Role Phone Jamal Benson MD Primary Care Provider [phone] Reason for Referral * Cardiac Stress Testing (Routine) - Closed Specialty Diagnoses / Procedures Referred By Contac t Referred To Contact Cardiology Diagnoses Persistent atrial fibrillation (CMS/HCC) Procedures Cardiac holter monitor (<= 48 hours) NM ECG EXTERNAL UP TO 48 HOURS RECORDING NM ECG EXTERNAL < 48 HOURS CONTINUOUS RECORDING/STORAGE R&I BY A PHYS/QHP NM EXTERNAL ECG UP TO 48 HRS INCL RECORDING SCANNING ANLYS W REPORT Rc Knight NP [address] [place] [address] Phone: tel: fax: [facility] Referral ID Status Reason Start Date Expiration Date Visits Re quested Visits Authorized [id number] Closed 07/14/2024 07/14/2025 1 1 Reason for Visit * Reason Comments Follow-up Encounter Details Date Type Department Care Team (Late st Contact Info) Description 07/14/2024 8:40 AM EST Office Visit [facility] [address] [facility] [address] [place] [address] Rc Knight NP [address] [place] [address] Coronary artery disease, unspecified vessel or lesion type, unspecified whether angina present, unspecified whether [place] or transplanted heart (Primary Dx); Hyperlipidemia, unspecified hyperlipidemia type; Nonrheumatic aortic valve stenosis; Persistent atrial fibrillation (CMS/HCC); Hypertension, unspecified type Social History Tobacco Use Types Packs/Day Years Used Date Smoking Tobacco: Never Smokeless Tobacco: Never Tobacco Cessation:Counseling Given: Not Answered Alcohol Use Standard Drinks/Week Comments Yes 0 (1 standard drink = 0.6 oz pur e alcohol) Sex and Gender Information Value Date Recorded Sex Assigned at Not on file Legal Sex Male 3:44 AM EST Gender Identity Not on file Sexual Orientation Not on file documented as of this encounter Last Filed Vital Signs Vital Sign Reading Time Taken Comments Blood Pressure 140/80 07/14/2024 8:25 AM EST Pulse 67 07/14/2024 8:25 AM EST Temperature - - Respiratory Rate - - Oxygen Saturation 98% 07/14/2024 8:25 AM EST Inhaled Oxygen Concentration - - Weight 82.5 kg (181 lb 12.8 oz) 07/14/2024 8:25 AM EST Height 170.2 cm (5' 7 ) 07/14/2024 8:25 AM EST Body Mass Index 28.47 07/14/2024 8:25 AM EST documented in this encounter Progress Notes * Rc Knight NP - 07/14/2024 8:40 AM ESTAssociated Problem(s): Aortic valve stenosis Unchanged moderate to severe aortic stenosis. Can repeat Echocardiogram every year, or if symptoms/murmur worsens. * Rc Knight NP - 07/14/2024 8:40 AM ESTAssociated Problem(s): Persistent atrial fibrillation (CMS/HCC) Patient in Aflutter today. He reports he can not tell if he is in A flutter or not. Will order 48 holter monitor. Patient should remain rate controlled with Atenolol and Eliquis for CVS prophylaxis. Orders: Cardiac holter monitor (<= 48 hours); Future * Rc Knight NP - 07/14/2024 8:40 AM ESTAssociated Problem(s): CAD (coronary artery disease) See most recent echocardiogram results above. Continue on baby aspirin, beta butch, and statin. Adhere to a healthy cardiac diet. Instructed to call 911 or go to the emergency room should the patient begin to experience chest pain or pressure lasting greater than 10 minutes does not resolve with rest. Orders: ECG 12 lead * Rc Knight NP - 07/14/2024 8:40 AM ESTAssociated Problem(s): Hyperlipidemia Continue on current medication regiment. * Rc Knight NP - 07/14/2024 8:40 AM ESTAssociated Problem(s): Hypertension Patient has white coat syndrome, takes BP at home and values are within normal range. Continue current Medication regimen. Educated on the importance of diet lifestyle to help further assist in reducing blood pressure. The patient was encouraged to follow low-salt low-fat diet, make purposeful strides towards weight loss, and engage in routine aerobic exercise as tolerated. * Rc Knight NP - 07/14/2024 8:40 AM EST Images from the original note were not included. [facility] PRIMARY IT INFRASTRUCTURE MANAGER: Aracelis Bryant MD PCP: Jamal Benson MD HPI: HPI: Madhu Mckeon is a 78 yr. Male who presents for cardiac follow up of: 1. Coronary artery disease 2. HFpEF 3. Aortic stenosis 4. Hypertension 5. Hyperlipidemia 6. Persistent atrial fibrillation At his previous appointment he was having complaints of SOB with moderate levels of exercise. He felt that at times his breathing was abnormal. He was started on Jardiance 10 mg PO daily and had an echocardiogram. Please see the full results of the echocardiogram below. He is here for a routine cardiac follow-up. He seems to be doing well from a cardiac standpoint. Hethinks that since he started Jardiance at his previous appointment he has been feeling better. He reports an improvement in his [place]. He walk about 2-3 times per week. He goes to the gym and utilizes light work with weights. Denies chest pain, pressure, shortness of breath, dyspnea exertion, dizziness, lightheadedness, presyncope or syncope. The patient denies palpitations, peripheral edema, abdominal distention, PND or orthopnea. There have been no falls or cardiac related hospitalizations since the last office visit. He denies any abnormal bleeding. ACTIVE MEDICATIONS: Outpatient Medications Marked as Taking for the 07/14/24 encounter (Office Visit) with Rc Knight NP Medication Sig Dispense Refill allopurinoL (ZYLOPRIM) 300 mg tablet Take 1 tablet (300 mg total) by mouth 1 (one) time each day. apixaban (ELIQUIS) 5 mg tablet Take 1 tablet (5 mg total) by mouth 2 (two) times a day. 180 tablet 3 aspirin 81 mg EC tablet Take 1 tablet (81 mg total) by mouth 1 (one) time each day. atenoloL (TENORMIN) 25 mg tablet TAKE 1 AND ONE-HALF TABLETS BY MOUTH DAILY atorvastatin (LIPITOR) 20 mg tablet Take 1 tablet (20 mg total) by mouth 1 (one) time each day. cholecalciferol (VITAMIN D-3) 50 mcg (2,000 unit) capsule Take by mouth. fenofibrate (TRICOR) 48 mg tablet Take 1 tablet (48 mg total) by mouth 1 (one) time each day. finasteride (PROSCAR) 5 mg tablet Take 1 tablet (5 mg total) by mouth 1 (one) time each day. at bedtime hydroCHLOROthiazide (HYDRODIURIL) 25 mg tablet Take 1 tablet (25 mg total) by mouth 1 (one) time each day. (Patient taking differently: Take 0.5 tablets (12.5 mg total) by mouth 1 (one) time each day.) Jardiance 10 mg tablet Take 1 tablet (10 mg total) by mouth 1 (one) time each day. KRILL OIL ORAL Take 750 mg by mouth 1 (one) time each day. levothyroxine sodium (TIROSINT) 75 mcg capsule daily. multivitamin with minerals (Multiple Vitamin-Minerals) tablet Take by mouth. omeprazole (PRILOSEC) 20 mg tablet,delayed release (DR/EC) daily. tamsulosin (FLOMAX) 0.4 mg 24 hr capsule Take 1 capsule (0.4 mg total) by mouth 1 (one) time each day. PAST MEDICAL HISTORY: Patient Active Problem List Diagnosis Shortness of breath Aortic valve stenosis Persistent atrial fibrillation (CMS/HCC) Hyperlipidemia Hypertension CAD (coronary artery disease) ALLERGIES: No Known Allergies SOCIAL HISTORY: Social History Tobacco Use Smoking status: Never Smokeless tobacco: Never Substance Use Topics Alcohol use: Yes PHYSICAL EXAM: Vitals: 07/14/24 0825 BP: (!) 140/80 BP Location: Left arm Patient Position: Sitting BP Cuff Size: Adult Pulse: 67 SpO2: 98% Weight: 82.5 kg (181 lb 12.8 oz) Height: 1.702 m (67 ) Physical Exam Constitutional: General: He is not in acute distress. HENT: Head: Normocephalic. Right Ear: External ear normal. Left Ear: External ear normal. Nose: Nose normal. Eyes: Conjunctiva/sclera: Conjunctivae normal. Neck: Vascular: No carotid bruit. Cardiovascular: Rate and Rhythm: Normal rate and regular rhythm. Pulses: Normal pulses. Heart sounds: Murmur heard. No friction rub. No gallop. Pulmonary: Effort: Pulmonary effort is normal. Breath sounds: Normal breath sounds. No wheezing, rhonchi or rales. Chest: Chest wall: No tenderness. Abdominal: General: There is no distension. Musculoskeletal: General: No swelling or tenderness. Cervical back: Neck supple. Right lower leg: No edema. Left lower leg: No edema. Skin: General: Skin is warm and dry. Neurological: General: No focal deficit present. Mental Status: He is alert and oriented to person, place, and time. Psychiatric: Mood and Affect: Mood normal. Behavior: Behavior normal. Thought Content: Thought content normal. Judgment: Judgment normal. EKG: No results found for this or any previous visit (from the past 4464 hours). TESTING: ASSESSMENT/PLAN: Assessment & Plan Coronary artery disease, unspecified vessel or lesion type, unspecified whether angina present, unspecified whether [place] or transplanted heart See most recent echocardiogram results above. Continue on baby aspirin, beta butch, and statin. Adhere to a healthy cardiac diet. Instructed to call 911 or go to the emergency room should the patient begin to experience chest pain or pressure lasting greater than 10 minutes does not resolve with rest. Orders: ECG 12 lead Hyperlipidemia, unspecified hyperlipidemia type Continue on current medication regiment. Nonrheumatic aortic valve stenosis Unchanged moderate to severe aortic stenosis. Can repeat Echocardiogram every year, or if symptoms/murmur worsens. Persistent atrial fibrillation (CMS/HCC) Patient in Aflutter today. He reports he can not tell if he is in A flutter or not. Will order 48 holter monitor. Patient should remain rate controlled with Atenolol and Eliquis for CVS prophylaxis. Orders: Cardiac holter monitor (<= 48 hours); Future Hypertension, unspecified type Patient has white coat syndrome, takes BP at home and values are within normal range. Continue current Medication regimen. Educated on the importance of diet lifestyle to help further assist in reducing blood pressure. The patient was encouraged to follow low-salt low-fat diet, make purposeful strides towards weight loss, and engage in routine aerobic exercise as tolerated. Thank you for allowing us to participate in the care of this patient. The patient will follow up in6 months, sooner PRN. As per AHA guidelines and previously established plan of care by Dr. Aracelis Bryant MD, we discussedthe following today: 1. Coronary artery disease, unspecified vessel or lesion type, unspecified whether angina present, unspecified whether [place] or transplanted heart 2. Hyperlipidemia, unspecified hyperlipidemia type 3. Nonrheumatic aortic valve stenosis 4. Persistent atrial fibrillation (CMS/HCC) 5. Hypertension, unspecified type [facility] documented in this encounter Plan of Treatment Upcoming Encounters Date Type Department Care Team (Late st Contact Info) Description 01/18/2025 9:50 AM EDT Office Visit [facility] [address] [facility] [address] [place] [address] Aracelis Bryant MD [address] [place] [address] documented as of this encounter Procedures Procedure Name Priority Date/Time Associated Diagnosis Comments ECG 12-LEAD Routine 07/14/2024 9:20 AM EST Coronary artery disease, unspecified vessel or lesion type, unspecified whether angina present, unspecified whether [place] or transplanted heart documented in this encounter Results * CARDIAC HOLTER MONITOR (REPORT GENERATED IN HOUSE) (07/27/2024 8:20 AM EST) Anatomical Region Laterality Modality Cardiac Diagnost ic Narrative 08/05/2024 4:20 PM EST [facility] [address] [facility], [id number], [place] [address] TEL: FAX: Type of Test: 48 Hour Holter Monitor Date of Test: 07/27/2024 Ordering Provider: Rc Knight NP Reason for Test: Persistent Atrial Fibrillation ?? PVCA Complaint Operator Findings: ?? 1: Atrial Flutter noted throughout recording. 2: Ventricular rate range was 40-94 BPM with an average of 65 BPM. 3: Occasional PVCs and two ventricular couplets. ??Overall ventricular ectopic burden is only 0.6%. 4: No significant pauses noted, longest R-R was 2.3 seconds at 4:15 PM. 5: Diary returned with no symptoms noted. Impression: ?? 1. ??Atrial flutter throughout the recording with controlled ventricular response rate. 2. ??No significant pauses. 3. ??No symptoms recorded. Rc Knight NP [facility] PROCEDURES F inal Result * ECG 12 lead (07/14/2024 9:20 AM EST) Ventricular Rate ECG 66 BPM GEMUSE Atrial Rate 264 BPM GEMUSE QRS Duration 90 ms GEMUSE Q-T Interval 428 ms GEMUSE QTc 448 ms GEMUSE P Wave [place] 71 degrees GEMUSE R [place] 34 degrees GEMUSE T [place] 53 degrees GEMUSE ECG Interpretation Atrial flutter with 4:1 A-V conduction Poor R wave progression -Possible ??Septal infarct , age undetermined Nonspecific ST and T wave abnormality Abnormal ECG When compared with ECG of 02-FEB-2021 07:33, No significant changes are noted Confirmed by ARACELIS BRYANT ([id number]) on 07/27/2024 9:19:38 AM GEMUSE 07/14/2024 8:38 AM EST 07/27/2024 9:19 AM EST Rc Knight NP ECG ORDERABLES Edited Result - Final GEMUSE documented in this encounter Visit Diagnoses Diagnosis Coronary artery disease, unspecified vessel or lesion type, unspecified whether angina present, unspecified whether [place] or transplanted heart- Primary Hyperlipidemia, unspecified hyperlipidemia type Nonrheumatic aortic valve stenosis Persistent atrial fibrillation (CMS/HCC) Atrial fibrillation Hypertension, unspecified type Persistent atrial fibrillation (CMS/HCC) Atrial fibrillation documented in this encounter Discontinued Medications Medication Sig Discontinue Reason Start Date End Da te apixaban (Eliquis) 5 mg tablet Take 1 tablet (5 mg total) by mouth 2 (two) times a day. Entered in Error 08/13/2021 07/14/2024 documented as of this encounter Historical Medications * This list may reflect changes made after this encounter. aspirin 81 mg EC tablet Take 1 tablet (81 mg total) by mouth 1 (one) time each day. added in this encounter Care Teams Buildings And Grounds Director Relationship Specialty Start Date End Date Jamal Benson MD [facility] [address] [place] [address] [address] [place], [place] [address] PCP - General Internal Medicine 06/27/24 documented as of this encounter
--- OUTSIDE RECORDS SUMMARY | 2024-08-11 18:49 | XMS_ITS | Encounter Summary ---
Author Organization [facility] Address [address] [place] [address] Care Team Providers Care Director Of Business Development Name Role Phone Jamal Benson MD Primary Care Provider [phone]- [phone] Reason for Visit * Reason Comments 48 Hour Holter Monitor * Cardiac Stress Testing (Routine) - Closed Specialty Diagnoses / Procedures Referred By Contac t Referred To Contact Cardiology Diagnoses Persistent atrial fibrillation (CMS/HCC) Procedures Cardiac holter monitor (<= 48 hours) IN ECG EXTERNAL UP TO 48 HOURS RECORDING IN ECG EXTERNAL < 48 HOURS CONTINUOUS RECORDING/STORAGE R&I BY A PHYS/QHP IN EXTERNAL ECG UP TO 48 HRS INCL RECORDING SCANNING ANLYS W REPORT Rc Knight NP [address] [place] [address] Phone: tel: fax: [facility] Referral ID Status Reason Start Date Expiration Date Visits Re quested Visits Authorized [id number] Closed 07/14/2024 07/14/2025 1 1 Encounter Details Date Type Department Care Team (Latest Contact Info) Description 07/27/2024 8:30 AM EST Ancillary Procedure [facility] - [facility] [address] [address] Persistent atrial fibrillation (CMS/HCC) Social History Tobacco Use Types Packs/Day Years [...] on file documented as of this encounter Progress Notes * Rc Knight NP - 07/27/2024 8:30 AM EST Can you let the patient know that he was in atrial flutter throughout the entire recording. Heart rate was controlled. Continue on current medication regiment. documented in this encounter Plan of Treatment Upcoming Encounters Date Type Department Care Team (Late st Contact Info) Description 01/18/2025 9:50 AM EDT Office Visit [facility] [address] 300 [facility] [address] [place] [address] Aracelis Jacobo MD [address] [place] [address] documented as of this encounter Procedures Procedure Name Priority Date/Time Associated Diagnosis Comments CARDIAC HOLTER MONITOR (REPORT GENERATED IN HOUSE) Routine 07/27/2024 8:20 AM EST Persistent atrial fibrillation (CMS/HCC) documented in this encounter Results * CARDIAC HOLTER MONITOR (REPORT GENERATED IN HOUSE) (07/27/2024 8:20 AM EST) Anatomical Region Laterality Modality Cardiac Diagnost ic Narrative 08/05/2024 4:20 PM EST [facility] [address] [facility], [id number], [place] [address] TEL: FAX: Type of Test: 48 Hour Holter Monitor Date of Test: 07/27/2024 Ordering Provider: Rc Knight NP Reason for Test: Persistent Atrial Fibrillation ?? PVCA Manual Control Auger Press Operator Findings: ?? 1: Atrial Flutter noted [...] CV CARDIAC SERVICES PROCEDURES F inal Result documented in this encounter Visit Diagnoses Diagnosis Persistent atrial fibrillation (CMS/[facility]) Atrial fibrillation documented in this encounter Care Teams Director Of Business Development Relationship Specialty Start Date End Date Jamal Benson MD [facility] [address] [place], [place] [address] PCP - General Internal Medicine 06/27/24 documented as of this encounter
--- OUTSIDE RECORDS SUMMARY | 2024-08-11 18:49 | XMS_ITS | Clinical Summary ---
Author Organization [address] [place] [address] [place] [phone] Phone Care Team Providers Care Robotype Operator Name Role Phone Jamal Benson MD Primary Care Provider +1- [phone] Allergies No known active allergies Medications apixaban (ELIQUIS) 5 mg tablet Take 1 tablet (5 mg total) by mouth 2 (two) times a day. 180 tablet 3 04/26/20 24 Active allopurinoL (ZYLOPRIM) 300 mg tablet Take 1 tablet (300 mg total) by mouth 1 (one) time each day. Active atenoloL (TENORMIN) 25 mg tablet TAKE 1 AND ONE-HALF TABLETS BY MOUTH DAILY Active atorvastatin (LIPITOR) 20 mg tablet Take 1 tablet (20 mg total) by mouth 1 (one) time each day. Active fenofibrate (TRICOR) 48 mg tablet Take 1 tablet (48 mg total) by mouth 1 (one) time each day. Active finasteride (PROSCAR) 5 mg tablet Take 1 tablet (5 mg total) by mouth 1 (one) time each day. at bedtime Active hydroCHLOROthi azide (HYDRODIURIL) 25 mg tablet Take 1 tablet (25 mg total) by mouth 1 (one) time each day. Active KRILL OIL ORAL Take 750 mg by mouth 1 (one) time each day. Active levothyroxine sodium (TIROSINT) 75 mcg capsule daily. 06/13/19 21 Active omeprazole (PRILOSEC) 20 mg tablet,delayed release (DR/EC) daily. 06/06/19 21 Active tamsulosin (FLOMAX) 0.4 mg 24 hr capsule Take 1 capsule (0.4 mg total) by mouth 1 (one) time each day. 05/30/20 20 025 Active multivitamin with minerals (Multiple Vitamin-Minera ls) tablet Take by mouth. 06/06/19 21 Active cholecalcifero l (VITAMIN D-3) 50 mcg (2,000 unit) capsule Take by mouth. Active aspirin 81 mg EC tablet Take 1 tablet (81 mg total) by mouth 1 (one) time each day. Active empagliflozin (Jardiance) 10 mg tablet TAKE 1 TABLET BY MOUTH DAILY 90 tablet 3 08/06/19 25 Active apixaban (Eliquis) 5 mg tablet Take 1 tablet (5 mg total) by mouth 2 (two) times a day. 08/14/19 22 025 Discontinued(En tered in Error) Jardiance 10 mg tablet Take 1 tablet (10 mg total) by mouth 1 (one) time each day. 025 Discontinued Active Problems Problem Noted Date Diagnosed Date CAD (coronary artery disease) 04/27/2024 Assessment & Plan (07/14/2024 9:27 AM EST): See most recent echocardiogram results above. Continue on baby aspirin, beta butch, and statin. Adhere to a healthy cardiac diet. Instructed to call 911 or go to the emergency room should the patient begin to experience chest pain or pressure lasting greater than 10 minutes does not resolve with rest. Orders: ECG 12 lead Shortness of breath 01/11/2021 Overview (04/27/2024): Last Assessment & Plan: In light of recent echocardiogram showing fairly advanced diastolic dysfunction, I wonder if his shortness of breath is a presentation of exertional HFpEF more than anything. It is uncertain why he would have such pronounced HFpEF. He had an ambulatory blood pressure monitoring July that indicated good blood pressure control at home. That said, he does have some pre-existing risk factors including predominantly nonobstructive coronary disease, aortic stenosis, hypertension, A- fib. I would like to trial using SGLT2 inhibitor to see if this improves his symptoms over time. It may also have some renal protective properties though I am uncertain if this applies to nondiabetics. I will touch base with Dr. Arroyo his home performance laborer just to update him. I also encouraged him to start a regular aerobic exercise program- attempting 4 to 5 days a week gradually escalating pace and incline. He seems very motivated to do this. My hope is that the combination of medications and exercise will help improve symptoms over time. We are trialing Jardiance 10 mg daily. I have given him samples for a month. He will let me know if he wants to refill at that point. Side effects reviewed with the patient who verbalized understanding. Aortic valve stenosis 01/11/2021 Overview (07/14/2024): in June 2023 showing mild, concentric left ventricular hypertrophy with normal cavity size and systolic function, normal regional wall motion with an ejection fraction of 55 to 60%, normal RV size and systolic function, grade 3 diastolic dysfunction consistent with high left atrial pressure, mild left atrial enlargement, evidence of mild pulmonary hypertension, moderate aortic stenosis with dimensionless index 0.36 and a calculated aortic valve area of 1.1 cm??, mild aortic insufficiency-aortic stenosis has progressed slightly since 2020 - On 06/2024 Echo - Left ventricle cavity size is normal. There is normal wall thickness. There is normal left ventricular regional wall motion. Left ventricular systolic function is in the normal range with an ejection fraction of 60-65%. Right ventricle cavity is normal. Right ventricular systolic function is low normal. Aortic valve demonstrates moderate to severe stenosis. See measurements below. There is trace aortic insufficiency. There is evidence of increased left atrial pressure. There is borderline pulmonary hypertension. Compared with prior echocardiogram from June 2023, findings are unchanged. Unchanged moderate to severe aortic stenosis. Normal biventricular systolic function. Assessment & Plan (07/14/2024 9:27 AM EST): Unchanged moderate to severe aortic stenosis. Can repeat Echocardiogram every year, or if symptoms/murmur worsens. Hyperlipidemia 01/11/2021 Overview (04/27/2024): Last Assessment & Plan: Due to his last lipid profile in the HDL the LDL was good. He states he had recent blood work we will see if we can get a copy of this. Assessment & Plan (07/14/2024 9:27 AM EST): Continue on current medication regiment. Hypertension 08/14/2020 Overview (04/27/2024): Last Assessment & Plan: Patient has whitecoat hypertension as documented by an ambulatory blood pressure monitor which suggested good blood pressure control at home with a mean average of 120/74 mmHg performed by his home performance laborer in July 2023. Continue current medications. Assessment & Plan (07/14/2024 9:27 AM EST): Patient has white coat syndrome, takes BP at home and values are within normal range. Continue current Medication regimen. Educated on the importance of diet lifestyle to help further assist in reducing blood pressure. The patient was encouraged to follow low-salt low-fat diet, make purposeful strides towards weight loss, and engage in routine aerobic exercise as tolerated. Persistent atrial fibrillation 04/23/2020 Overview (04/27/2024): - Rate controlled and on Eliquis for CVA prophylaxis Last Assessment & Plan: Continue Eliquis for CVA prophylaxis, atenolol for rate control Assessment & Plan (07/14/2024 9:27 AM EST): Patient in Aflutter today. He reports he can not tell if he is in A flutter or not. Will order 48 holter monitor. Patient should remain rate controlled with Atenolol and Eliquis for CVS prophylaxis. Orders: Cardiac holter monitor (<= 48 hours); Future Encounters Date Type Department Care Team Description 07/27/2024 8:30 AM EST Ancillary Procedure [facility] [address] [place] [phone] Persistent atrial fibrillation (CMS/HCC) 07/14/2024 8:40 AM EST Office Visit [facility] [address] [place] [phone] Rc Knight NP Coronary artery disease, unspecified vessel or lesion type, unspecified whether angina present, unspecified whether [place] or transplanted heart (Primary Dx); Hyperlipidemia, unspecified hyperlipidemia type; Nonrheumatic aortic valve stenosis; Persistent atrial fibrillation (CMS/HCC); Hypertension, unspecified type 06/27/2024 10:00 AM EST Ancillary Procedure [facility] [address] [place] [phone] Shortness of breath; Nonrheumatic aortic (valve) stenosis from Last 3 Months Immunizations Name Administration Dates Next Due Pfizer SARS-CoV-2 COVID-19, mRNA, LNP-S, preservative free 06/26/2020,06/05/2020 Medical History Medical History Date Comments Family history of cardiovascular disease DX:Family history of cardiovascular disease Essential hypertension DX:Essent ial hypertension Hyperlipidemia DX:Hyperlipidemi a Family History Medical History Relation Name Comments CABG Father Relation Name Status Comments Father Social History Tobacco Use Types Packs/Day Years [...] on file Sexual Orientation Not on file Obstetrics History Last Filed Vital Signs Vital Sign Reading [...] Mass Index 28.47 07/14/2024 8:25 AM EST Plan of Treatment Upcoming Encounters Date Type Department Care Team (Late st Contact Info) Description 01/18/2025 9:50 AM EDT Office Visit [facility] [address] [facility] [address] [place] [address] Aracelis Bryant MD [address] [place] [address] Health Maintenance Due Date Last Done Comments Pneumococcal Vaccine: 50+ Years (1 of 2 - PCV) 1964 Zoster Vaccines (1 of 2) 1995 RSV Immunization Patients 60+ Years Old (1 - 1-dose 75+ series) 2020 Depression Screening 05/04/2022 Falls Risk Assessment 05/04/2022 Hepatitis C Screening 05/04/2022 Medicare Annual Wellness Visit 05/04/2022 Social Influencers of Health Screening 05/04/2022 COVID-19 Vaccine ( season) 2024 03/27/2021, 06/26/2020, 06/05/2020 Influenza Vaccine (#1) 2024 , 03/26/2022, 05/01/2021, Additional history exists Hypertension/CHF/CAD Annual BMP Blood Test 01/12/2025 01/13/2024, 01/13/2024 DTaP,Tdap,and Td Vaccines (2 - Td or Tdap) 02/25/2025 02/25/2015 Cholesterol Screening (Lipid Panel) 01/12/2029 01/13/2024 HIB Vaccines Aged Out No longer eligi ble based on patient's age to complete this topic HPV Vaccines Aged Out No longer eligi ble based on patient's age to complete this topic Hepatitis A Vaccines Aged Out No long er eligible based on patient's age to complete this topic Hepatitis B Vaccines Aged Out No long er eligible based on patient's age to complete this topic IPV Vaccines Aged Out No longer eligi ble based on patient's age to complete this topic MMR Vaccines Aged Out No longer eligi ble based on patient's age to complete this topic Meningococcal ACWY Vaccine Aged Out N o longer eligible based on patient's age to complete this topic Meningococcal B Vacine Aged Out No lo nger eligible based on patient's age to complete this topic RSV Immunization Patients Under 20 months Aged Out No longer eligible based on patient's age to complete this topic Varicella Vaccines Aged Out No longer eligible based on patient's age to complete this topic Procedures Procedure Name Priority Date/Time Associated Diagnosis Comments CARDIAC HOLTER MONITOR (REPORT GENERATED IN HOUSE) Routine 07/27/2024 8:20 AM EST Persistent atrial fibrillation (CMS/HCC) ECG 12-LEAD Routine 07/14/2024 9:20 AM EST Coronary artery disease, unspecified vessel or lesion type, unspecified whether angina present, unspecified whether [place] or transplanted heart TRANSTHORACIC ECHOCARDIOGRAM (TTE) COMPLETE Routine 06/27/2024 10:44 AM EST Shortness of breath Nonrheumatic aortic (valve) stenosis ANNUAL BMP BLOOD TEST Routine 01/13/2024 LIPID PANEL Routine 01/13/2024 from Last 3 Months or Most Recently Relevant to Health Maintenance Results * CARDIAC HOLTER MONITOR (REPORT GENERATED IN HOUSE) (07/27/2024 8:20 AM EST) Anatomical Region Laterality Modality Cardiac Diagnost ic Narrative 08/05/2024 4:20 PM EST [facility] DEPARTMENT [address] [place] [address], [address] [address] TEL: FAX: Type of Test: 48 Hour Holter Monitor Date of Test: 07/27/2024 Ordering Provider: Rc Knight NP Reason for Test: Persistent Atrial Fibrillation ?? PVCA Legal Secretary Receptionist Findings: ?? 1: Atrial Flutter noted throughout [...] ??No significant pauses. 3. ??No symptoms recorded. us Rc Knight NP CV CARDIAC SERVICES PROCEDURES F inal Result * ECG 12 lead (07/14/2024 9:20 AM EST) Ventricular Rate ECG 66 BPM GEMUSE Atrial Rate 264 BPM GEMUSE QRS Duration 90 ms GEMUSE Q-T Interval 428 ms GEMUSE QTc 448 ms GEMUSE P Wave [place] 71 degrees GEMUSE R [place] 34 degrees GEMUSE T [place] 53 degrees GEMUSE ECG Interpretation Atrial flutter with 4:1 A-V conduction Poor R wave progression -Possible ??Septal infarct , age undetermined Nonspecific ST and T wave abnormality Abnormal ECG When compared with ECG of 02-FEB-2021 07:33, No significant changes are noted Confirmed by ARACELIS BRYANT ([id number]) on 07/27/2024 9:19:38 AM GEMUSE 07/14/2024 8:38 AM EST 07/27/2024 9:19 AM EST us Rc Knight NP ECG ORDERABLES Edited Result - Final GEMUSE * (ABNORMAL) TRANSTHORACIC ECHOCARDIOGRAM (TTE) COMPLETE (06/27/2024 10:44 AM EST) Left Atrium Minor [place] 6.7 cm CV PACS Left Atrium Major [place] 5.7 cm CV PACS LA Area Sys (A2C) 25 cm2 CV PACS LA Area Sys (A4C) 22 cm2 CV PACS LA Volume (BP) 78 mL CV PACS RA Area 18.0 cm2 CV PACS RA 2D Volume 45 mL CV PACS AV Regurgitation PHT 784 ms CV PACS AR Max Velocity 2.7 m/s CV PACS AV Peak Curt 3.1 m/s CV PACS AV Peak Gradient 37 mmHg CV PACS AV Mean Gradient 20 mmHg CV PACS Ao VTI 60.7 cm CV PACS AV Area Continuity Equation 1.0 cm2 CV PACS AV Area Peak Velocity 1.0 cm2 CV PACS Aortic Sinus Valsalva 3.3 cm CV PACS Ascending Aorta 3.4 cm CV PACS IVC Proximal 2.1 cm CV PACS IVC Proximal 1.0 cm CV PACS IVSD 0.9 0.6 - 1.0 cm CV PACS LVIDD 4.5 4.2 - 5.8 cm CV PACS LVIDS 3.2 2.5 - 4.0 cm CV PACS LVOT Diameter 2.0 cm CV PACS LVOT Mean Curt 0.7 m/s CV PACS LVOT Mean Grad 2 mmHg CV PACS LVOT Mean Grad 2 mmHg CV PACS LVOT Peak VTI 19.9 cm CV PACS LVOT Peak Curt 1.0 m/s CV PACS LVOT Peak Gradient 4 mmHg CV PACS LVPWD 1.0 0.6 - 1.0 cm CV PACS MV E' Tissue Velocity Lateral 12 cm/s CV PACS MV E' Tissue Velocity Septal 8 cm/s CV PACS LVOT Area 3.1 cm2 CV PACS LVOT Stroke Volume 62 mL CV PACS E Wave Deceleration Time 144 119 - 242 ms CV PACS MV Peak A Curt 0.54 m/s CV PACS MV Peak E Curt 1.33 m/s CV PACS RI End Max Velocity 1.2 m/s CV PACS PA End Diastolic Pressure 6 mmHg CV PACS PV Acceleration Time 95 ms CV PACS RV Diastolic Basal Dimension 4.3(A) 2.5 - 4.1 cm CV PACS RV S' 7 cm/s CV PACS TAPSE 18 mm CV PACS TR Peak Velocity 3.00 m/s CV PACS TR Peak Gradient 36 mmHg CV PACS E/E' Ratio Septal 17 CV PACS E/E' Ratio Averaged 14 CV PACS Relative Wall Thickness ratio 0.44 CV PACS LVOT:AV VTI Index 0.33 CV PACS FS 29 % CV PACS LV Mass 2D 143 g CV PACS LVOT flow 220 mL/s CV PACS AV Velocity Ratio 0.32 CV PACS E/A Ratio 2.5 CV PACS E/E' Ratio Lateral 11 CV PACS BSA 1.98 m2 CV PACS LA Volume Index (BP) 40 mL/m2 CV PACS LVIDD Index 2.31 cm/m2 CV PACS LVIDS Index 1.64 cm/m2 CV PACS LV Mass Index 2D 73 50 - 102 g/m2 CV PACS LVOT Stroke Index 32 mL/m2 CV PACS RA 2D Volume Index 23 18 - 32 mL/m2 CV PACS NED Index (VTI) 0.53 cm2/m2 CV PACS NED Index (Pk Curt) 0.51 cm2/m2 CV PACS Ascending Aorta Index 1.74 cm/m2 CV PACS Right Ventricular Peak Systolic Pressure 39 mmHg CV PACS Est. RA Pressure 3 mmHg CV PACS Anatomical Region Laterality Modality Ultrasound Narrative 07/10/2024 3:35 PM EST ?Left ventricle cavity size is normal. ??There is normal wall thickness. ?? There is normal left ventricular regional wall motion. ??Left ventricular systolic function is in the normal range with an ejection fraction of 60-65%. ?Right ventricle cavity is normal. Right ventricular systolic function is low normal. ?Aortic valve demonstrates moderate to severe stenosis. ??See measurements below. ??There is trace aortic insufficiency. ?There is evidence of increased left atrial pressure. ??There is borderline pulmonary hypertension. ?Compared with prior echocardiogram from June 2023, findings are unchanged. Unchanged moderate to severe aortic stenosis. ??Normal biventricular systolic function. Left Ventricle Left ventricle cavity size is normal. Wall thickness is normal. Systolic function is normal with an ejection fraction of 60-65%. There are no regional LV wall motion abnormalities. Evidence of increased left atrial pressure including E over E prime average of 14, shortened mitral valve deceleration time less than 160 ms, evidence of left atrial enlargement, evidence of pulmonary hypertension, and severely blunted S wave on pulmonary vein Doppler. Right Ventricle Right ventricle cavity appears normal. Systolic function is low normal. Left Atrium Left atrium cavity is mildly dilated. Right Atrium Right atrium cavity is normal. IVC/SVC Inferior vena cava structure is normal. RA pressures is estimated to be 3 mmHg (IVC diameter <21 mm and decreases >50% during inspiration). Mitral Valve The leaflets are mildly thickened. There is mild annular calcification. There is mild regurgitation. There is no significant stenosis noted. Tricuspid Valve Tricuspid valve structure is normal. There is mild regurgitation with a central jet. There is no significant tricuspid valve stenosis. Borderline pulmonary hypertension the RVSP is estimated at 39 mmHg. Aortic Valve The aortic valve is trileaflet. The leaflets are not thickened and exhibit normal excursion. There is trace regurgitation. There is moderate-severe stenosis. The mean gradient is 20 mmHg. The aortic valve area by continuity equation is 1.0 cm2. Pulmonic Valve The pulmonic valve was not well visualized. There is mild pulmonic valve regurgitation. No significant pulmonary valve stenosis noted. Ascending Aorta The aorta appears normal in size. Pericardium Pericardium appears normal. There is no pericardial effusion. Study Details Overall the study quality was adequate. Result [facility] Aracelis Bryant MD CV ECHO PROCEDURES Final Result * Annual BMP Blood Test (01/13/2024) Annual BMP Blood Test abstracted Result [facility] Historical Provider HEALTH MAINTENANCE Final Result * Lipid panel (01/13/2024) LDL/HDL Ratio 0 Comment:no interpretation, a bstracted Triglycerides 0 mg/dL Comment:no interpretation, a bstracted Cholesterol 0 mg/dL Comment:no interpretation, a bstracted HDL 0 mg/dL Comment:no interpretation, a bstracted LDL Cholesterol 0 mg/dL Comment:no interpretation, a bstracted Blood Venous blood specimen / Unknown Result [facility] Provider LAB BLOOD ORDERABLES Mary l Result from Last 3 Months or Most Recently Relevant to Health Maintenance Insurance [employer] Care Teams Robotype Operator Relationship Specialty Start Date End Date Jamal Benson MD [address] [place] [phone] PCP - General Internal Medicine 06/27/24
== END 2024-08-11 15:02 | disposition home or self-care (01) ==
LOC: HO.XRAY 15:01
PROVIDERS: PCP Internal Medicine; Visit Provider Otolaryngology
DX: R05.9 Cough, unspecified (principal)
CPT/HCPCS: 71046

== ENCOUNTER → 2024-08-11 15:12 | Outpatient (BNV) | payer MEDICARE, SELFPAY | PROVIDERS: PCP Internal Medicine; Visit Provider Radiology Diagnostic Radiology | DX: R05.3 Chronic cough (principal) | CPT/HCPCS: 71046 ==

== ENCOUNTER 2024-08-16 14:52 | Outpatient (AMB) | payer MEDICARE, SELFPAY ==
[2024-08-16 14:55] VITALS: BP 132/68; PULSE 67; O2SAT 98; BMI 26.4
--- NOTE | 2024-08-16 14:55 | A.OFFVIS_ITS ---
Vital Signs 08/16/24 14:55 Height 5 ft 7.5 in Weight 170 lb 13.732 oz BMI 26.4 BP 132/68 Blood Pressure Location Rt brachial Position Sitting Pulse 67 Pulse Source Pulse Oximeter Pulse Oximetry (%) 98 Oxygen Delivery Method Room Air Intake Visit Reasons: asthma Allergies No Known Allergies [No Known Allergies*] Allergy (Verified 08/16/24 14:59) HPI Comments Details: The patient is here for pulmonary evaluation. The patient is a 79-year-old gentleman with a known history of recurrent sinusitis who was in his usual state health until several weeks ago when he started developing worsening cough and fevers. He had a temperature up to 102. Initially took a Z-Adams. And then he was initially feeling better in the got worse again he took another Z-Adams. He did undergo a chest x-ray back 08/03/2024 which I personally reviewed demonstrating some slight increased markings of the airways suggesting some degree of bronchitis. His cough seems to be little better although he still productive in nature bringing up yellow phlegm typically in the morning. Moderate severity. His voice is still raspy. He did finally test for COVID he did test positive. Before the visit he did tested negative. On my examination his respiratory exam is fairly clear. He does have a rescue inhaler that he uses as needed. Although he does have a cardiac history so he has to be very careful not to precipitate any atrial fibrillation. The patient does have significant postnasal drip with exudative drainage. Therefore, likely has some postviral bacterial sinusitis that is developed and will go ahead and treat him with Augmentin at this time. Also providing with the Neti bottle to help him with cleansing of the sinuses and see if this provides some relief. We also did review some blood work that he has had in the past. His IgM levels were low. Therefore, will go ahead and request additional blood work at this time. 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 Sinusitis On anticoagulant therapy Hypertension Hypothyroid Nephrolithiasis Atrial fibrillation Surgical History (Updated 10/04/20 @ 10:55 by Zenon Allen MD) H/O left inguinal hernia repair History of arthroscopy of left knee History of vasectomy History of umbilical hernia repair History of inguinal hernia repair Family History Mother History of lung cancer Social History (Updated 08/16/24 @ 14:59 by Chelsea Santana CMA) Alcohol intake: current Alcohol intake frequency: a few times a week Patient Tobacco Use Status: Former Tobacco user Review of Systems Const Denies chills and Denies fever(s) ENT Denies dizziness, Reports nasal congestion, Reports nasal discharge and Denies throat swelling Card Denies chest pain Resp Reports chest congestion and Reports cough GI Denies abdominal pain Musc Denies back pain, Denies arthralgias, Denies joint swelling and Denies numbness Skin/Breast Denies change in pigmentation, Denies erythema and Denies rash Neuro Denies dizziness and Denies numbness Psych Denies anxiety and Denies depression Jamin/Lymph Denies easy bleeding, Denies easy bruising and Denies lymphadenopathy Aller/Immun Denies throat swelling Physical Exam Vital Signs: Last Vital Signs Pulse 67 08/16/24 14:55 BP 132/68 08/16/24 14:55 Pulse Ox 98 08/16/24 14:55 Oxygen Delivery Method Room Air 08/16/24 14:55 BMI result Body Mass Index 26.4 Const General: comfortable HEENT General nose exam: Abnormal mucous membranes and turbinates present erythematous Throat: Yes posterior oropharynx abnormal, Yes postnasal drainage and Yes cobblestoning Neck Neck: Yes supple Chest Chest palpation & inspection: normal inspection of the chest Resp Effort & Inspection: normal respiratory effort Auscultation: clear to auscultation bilaterally Cardio Heart sounds: S1 normal heart sound present and S2 normal heart sound present GI Palpation (GI): Soft to palpation Skin General skin exam: no rashes or lesions noted Extrem General: Yes no clubbing, cyanosis or edema Assessment & Plan Assessment & Plan (1) Sinusitis: Code(s): J32.9 - Chronic sinusitis, unspecified Category: Medical Qualifiers: Sinusitis location: unspecified location Chronicity: subacute Qualified Code(s): J01.90 - Acute sinusitis, unspecified (2) Bronchitis: Code(s): J40 - Bronchitis, not specified as acute or chronic Category: Medical (3) 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, unspecified Category: Medical Plan start Augmentin neti bottle rinsing Fluticasone nasal spray CATRINA as needed Bloodwork F/U 6-8 weeks Orders: Orders Basic Metabolic Panel Today J32.9 - Chronic sinusitis, unspecified, J40 - Bronchitis, not specified as acute or chronic Immunoglobulins,IgG IgA IgM Today J32.9 - Chronic sinusitis, unspecified, J40 - Bronchitis, not specified as acute or chronic Immunoglobulin E Today J32.9 - Chronic sinusitis, unspecified, J40 - Bronchitis, not specified as acute or chronic Complete Blood Count Auto Diff Today J32.9 - Chronic sinusitis, unspecified, J40 - Bronchitis, not specified as acute or chronic Erythrocyte Sedimentation Rate Today J32.9 - Chronic sinusitis, unspecified, J40 - Bronchitis, not specified as acute or chronic Medications: New amoxicillin-pot clavulanate 875-125 mg 1 tab PO BID 20 tabs 0RF 10 days Coding Level of Care Code New Pt Level 4 (14727) Diagnoses Subacute sinusitis, unspecified location J01.90 Sinusitis location: unspecified location Chronicity: subacute Bronchitis J40 [id number] syndrome U09.9 Time Spent (min) 40
--- OUTSIDE RECORDS SUMMARY | 2024-08-16 17:41 | XMS_ITS | Encounter Summary ---
Author Organization [facility] Address [address] [place] [address] Care Team Providers Care Assisted Living Associate Name Role Phone Jamal Benson MD Primary Care Provider [phone]- [phone] Reason for Visit * Reason Comments 48 Hour Holter Monitor * Cardiac Stress Testing (Routine) - Closed Specialty Diagnoses / Procedures Referred By Contac t Referred To Contact Cardiology Diagnoses Persistent atrial fibrillation (CMS/HCC) Procedures Cardiac holter monitor (<= 48 hours) AR ECG EXTERNAL UP TO 48 HOURS RECORDING AR ECG EXTERNAL < 48 HOURS CONTINUOUS RECORDING/STORAGE R&I BY A PHYS/QHP AR EXTERNAL ECG UP TO 48 HRS INCL RECORDING SCANNING ANLYS W REPORT Rc Knight NP [address] [place] [address] Phone: tel: fax: [facility] Referral ID Status Reason Start Date Expiration Date Visits Re quested Visits Authorized [id number] Closed 07/14/2024 07/14/2025 1 1 Encounter Details Date Type Department Care Team (Latest Contact Info) Description 07/27/2024 8:30 AM EST Ancillary Procedure [facility] - [facility] [address] [address] Persistent atrial fibrillation (CMS/HCC) Social [...] Description 01/18/2025 9:50 AM EDT Office Visit [facility] - [facility] [address] [facility] [address] [place] [address] Aracelis Jacobo MD [address] [place] [address] documented as of this encounter Procedures Procedure Name Priority Date/Time Associated Diagnosis Comments CARDIAC HOLTER MONITOR (REPORT GENERATED IN HOUSE) Routine 07/27/2024 8:20 AM EST Persistent atrial fibrillation (CMS/HCC) documented in this encounter Results * CARDIAC HOLTER MONITOR (REPORT GENERATED IN HOUSE) (07/27/2024 8:20 AM EST) Anatomical Region Laterality Modality Cardiac Diagnost ic Narrative 08/05/2024 4:20 PM EST [facility] DIAGNOSTIC TESTING DEPARTMENT [address] [facility], [id number], [place] [address] TEL: FAX: Type of Test: 48 Hour Holter Monitor Date of Test: 07/27/2024 Ordering Provider: Rc Knight NP Reason for Test: Persistent Atrial Fibrillation ?? PVCA Mill Roll Rewinder Findings: ?? 1: Atrial Flutter noted throughout [...] encounter Visit Diagnoses Diagnosis Persistent atrial fibrillation (CMS/[facility]ER[facility]) Atrial fibrillation documented in this encounter Care Teams Assisted Living Associate Relationship Specialty Start Date End Date Jamal Benson MD [facility] [address] [place], [place] [address] PCP - General Internal Medicine 06/27/24 documented as of this encounter
--- OUTSIDE RECORDS SUMMARY | 2024-08-16 17:41 | XMS_ITS | Encounter Summary ---
Author Organization [facility] Address [address] [address] Phone Care Team Providers Care Machine Whitener Name Role Phone Dhruv Dolan Primary Care Provider Encounter Details Date Type Department Care Team (Late st Contact Info) Description 07/29/2024 Orders Only [facility] [place] [id number] [phone] Chaparro Arroyo MD [address] [phone] Social History Tobacco Use Types [...] Office Visit [facility] [address] [phone] Chaparro Arroyo MD [address] [address] documented as of this encounter [...] PTH 28 15 - 65 pg/mL [facility] 07/29/2024 9:41 AM EST 07/29/2024 us Chaparro Arroyo MD LAB BLOOD ORDERABLES Final Re sult [facility] [address] [place] [address] * Magnesium (07/29/2024 9:41 AM EST) Magnesium 2.1 1.6 - 2.3 mg/dL [facility] 07/29/2024 9:41 AM EST 07/29/2024 us Chaparro Arroyo MD LAB BLOOD ORDERABLES Final Re sult Performing Organization Address City/[facility]/ZIP Co de Phone Number [facility] [address] [place] [address] * (ABNORMAL) Phosphorus (07/29/2024 9:41 AM EST) Phosphorus 2.6(L) 2.8 - 4.1 mg/dL [facility] 07/29/2024 9:41 AM EST 07/29/2024 Chaparro Arroyo MD LAB BLOOD ORDERABLES Final Re sult Performing Organization Address [facility] Co de Phone Number [facility] [address] [place] [address] * Uric Acid (07/29/2024 9:41 AM EST) Uric Acid 5.2 3.8 - 8.4 mg/dL [facility] Comment:Therapeutic target f or gout patients: <6.0 07/29/2024 9:41 AM EST 07/29/2024 Chaparro Arroyo MD LAB BLOOD ORDERABLES Final Re sult Performing Organization Address [facility]/ZIP Co de Phone Number [facility] [address] [place] [address] * Vitamin D 25 Hydroxy (07/29/2024 9:41 AM EST) Vitamin D, 25-OH, Total 37.9 30.0 - 100.0 ng/mL [facility] Comment: Vitamin D deficiency has been defined by the [place] of [employer] and an Endocrine Society practice guideline as a level of serum 25-OH vitamin D less than 20 ng/mL (1,2). The Endocrine Society went on to further define vitamin D insufficiency as a level between 21 and 29 ng/mL (2). 1. IOM ([place] of [employer]). 2010. Dietary reference ?? intakes [...] ORDERABLES Final Re sult Performing Organization Address City/[facility] Co de Phone Number [employer] [facility] [address] [place] [address] * (ABNORMAL) Hemoglobin A1c (07/29/2024 9:41 AM EST) Hemoglobin A1C 5.8(H) 4.8 - 5.6 % [facility] Comment: ? Prediabetes: 5.7 - 6.4 ? Diabetes: >6.4 ? Glycemic control for adults with diabetes: <7.0 07/29/2024 9:41 AM EST 07/29/2024 Chaparro Arroyo MD LAB BLOOD ORDERABLES Final Re sult Performing Organization Address City/[facility] Co de Phone Number [facility] [address] [place] [address] * Protein, Total, Random Urine w/Creatinine (Protein/Creat Ratio) (07/29/2024 9:41 AM EST) Creatinine, Ur 68.3 Not Estab. mg/dL [facility] Protein, Ur 8.3 Not Estab. mg/dL [facility] Urine Protein/Creatin ine Ratio 122 0 - 200 mg/g creat [facility] 07/29/2024 9:41 AM EST 07/29/2024 us Chaparro Arroyo MD LAB URINE ORDERABLES Final Re sult [facility] [address] [place] [address] * (ABNORMAL) Comprehensive Metabolic Panel (07/29/2024 9:41 AM EST) BUN 27 8 - 27 mg/dL [facility] Sodium 138 134 - 144 mmol/L [facility] Potassium 3.9 3.5 - 5.2 mmol/L [facility] Chloride 100 96 - 106 mmol/L [facility] Bicarbonate (CO2) 24 20 - 29 mmol/L [facility] Glucose 100(H) 70 - 99 mg/dL [facility] Creatinine 1.51(H) 0.76 - 1.27 mg/dL [facility] eGFR CKD-EPI CR 2020 47(L) >59 mL/min/1.7 3 [facility] BUN/Creatinine Ratio 18 10 - 24 [facility] Calcium 10.7(H) 8.6 - 10.2 mg/dL [facility] Comment:Verified by repeat analysis Total Protein 7.1 6.0 - 8.5 g/dL [facility] Albumin 4.6 3.8 - 4.8 g/dL [facility] Globulin 2.5 1.5 - 4.5 g/dL [facility] Total Bilirubin 0.7 0.0 - 1.2 mg/dL [facility] Alkaline Phosphatase 98 44 - 121 IU/L [facility] AST (SGOT) 29 0 - 40 IU/L [facility] ALT (SGPT) 22 0 - 44 IU/L [facility] 07/29/2024 9:41 AM EST 07/29/2024 us Chaparro Arroyo MD LAB BLOOD ORDERABLES Final Re sult [facility] [address] [place] [address] * (ABNORMAL) CBC and Differential (07/29/2024 9:41 AM EST) WBC 6.7 3.4 - 10.8 x10E3/uL [facility] RBC 5.11 4.14 - 5.80 x10E6/uL [facility] Hemoglobin 15.9 13.0 - 17.7 g/dL [facility] Hematocrit 48.3 37.5 - 51.0 % [facility] MCV 95 79 - 97 fL [facility] MCH 31.1 26.6 - 33.0 pg [facility] MCHC 32.9 31.5 - 35.7 g/dL [facility] RDW 15.0 11.6 - 15.4 % [facility] Platelets 140(L) 150 - 450 x10E3/uL [facility] Neutrophils Relative 57 Not Estab. % [facility] Lymphocytes Relative 31 Not Estab. % [facility] Monocytes 10 Not Estab. % [facility] Eosinophils Relative 2 Not Estab. % [facility] Basophils Relative 0 Not Estab. % [facility] Neutrophils Absolute 3.8 1.4 - 7.0 x10E3/uL [facility] Lymphocytes Absolute 2.1 0.7 - 3.1 x10E3/uL [facility] Monocytes Absolute 0.7 0.1 - 0.9 x10E3/uL [facility] Eosinophils Absolute 0.1 0.0 - 0.4 x10E3/uL [facility] Basophils Absolute 0.0 0.0 - 0.2 x10E3/uL [facility] Immature Granulocytes 0 Not Estab. % [facility] Immature Grans (Absolute) 0.0 0.0 - 0.1 x10E3/uL [facility] 07/29/2024 9:41 AM EST 07/29/2024 us Chaparro Arroyo MD LAB BLOOD ORDERABLES Final Re sult [facility] [address] [place] [address] documented in this encounter Visit Diagnoses Not on filedocumented in this encounter Care Teams Machine Whitener Relationship Specialty Start Date End Date Dhruv Dolan DO [address] [place] [address], [place] PCP - General 06/11/20 documented as of this encounter
--- OUTSIDE RECORDS SUMMARY | 2024-08-16 17:41 | XMS_ITS | Clinical Summary ---
Author Organization [address] [place] [address] [place] [phone] Phone Care Team Providers Care Manpower Development Manager Name Role Phone Jamal Benson MD Primary Care Provider +1- [phone] Allergies No known active allergies Medications apixaban (ELIQUIS) 5 mg tablet Take 1 tablet (5 mg total) by mouth 2 (two) times a day. 180 tablet 3 4 Active allopurinoL (ZYLOPRIM) 300 mg tablet Take [...] levothyroxine sodium (TIROSINT) 75 mcg capsule daily. 1 Active omeprazole (PRILOSEC) 20 mg tablet,delayed release (DR/EC) daily. 1 Active multivitamin with minerals (Multiple Vitamin-Minera ls) tablet Take by mouth. 1 Active cholecalcifero l (VITAMIN D-3) 50 mcg (2,000 unit) capsule Take by mouth. Active aspirin 81 mg EC tablet Take 1 tablet (81 mg total) by mouth 1 (one) time each day. Active empagliflozin (Jardiance) 10 mg tablet TAKE 1 TABLET BY MOUTH DAILY 90 tablet 3 5 Active Jardiance 10 mg tablet Take 1 tablet (10 mg total) by mouth 1 (one) time each day. 08/06/19 25 Discontinued tamsulosin (FLOMAX) 0.4 mg 24 hr capsule Take 1 capsule (0.4 mg total) by mouth 1 (one) time each day. 0 08/14/19 25 Active Problems Problem Noted Date Diagnosed Date [...] will touch base with Dr. Arroyo his vocational auto body instructor just to update him. I also encouraged [...] average of 120/74 mmHg performed by his vocational auto body instructor in July 2023. Continue current medications. Assessment [...] Description 07/27/2024 8:30 AM EST Ancillary Procedure [facility] [address] [place] [address] Persistent atrial fibrillation (CMS/HCC) 07/14/2024 8:40 AM EST Office Visit [facility] [address] [place] [address] Rc Knight NP Coronary artery disease, unspecified vessel or lesion type, unspecified whether angina present, unspecified whether huslia or transplanted heart (Primary Dx); Hyperlipidemia, unspecified hyperlipidemia type; Nonrheumatic aortic valve stenosis; Persistent atrial fibrillation (CMS/HCC); Hypertension, unspecified type 06/27/2024 10:00 AM EST Ancillary Procedure [facility] - [facility] [address] [facility] [address] [place] [phone] Shortness of breath; Nonrheumatic aortic (valve) stenosis [...] Description 01/18/2025 9:50 AM EDT Office Visit [facility] - [facility] [address] [facility] [address] [place] [phone] Aracelis Bryant MD [address] [place] [address] Health Maintenance Due Date Last Done Comments Pneumococcal Vaccine: 50+ Years (1 of 2 - PCV) 1964 Zoster Vaccines (1 of 2) 1995 RSV Immunization Patients 60+ Years Old (1 - 1-dose 75+ series) 2020 Depression Screening 05/04/2022 Falls Risk Assessment 05/04/2022 Hepatitis C Screening 05/04/2022 Medicare Annual Wellness Visit 05/04/2022 Social Influencers of Health Screening 05/04/2022 COVID-19 Vaccine ( - season) 2024 03/27/2021, 06/26/2020, 06/05/2020 Influenza Vaccine [...] type, unspecified whether angina present, unspecified whether huslia or transplanted heart TRANSTHORACIC ECHOCARDIOGRAM (TTE) COMPLETE Routine 06/27/2024 10:44 AM EST Shortness of breath Nonrheumatic aortic (valve) stenosis HM ANNUAL BMP BLOOD TEST Routine 01/13/2024 LIPID PANEL Routine 01/13/2024 from Last 3 Months or Most Recently Relevant to Health Maintenance Results * CARDIAC HOLTER MONITOR (REPORT GENERATED IN HOUSE) (07/27/2024 8:20 AM EST) Anatomical Region Laterality Modality Cardiac Diagnost ic Narrative 08/05/2024 4:20 PM EST [facility] DEPARTMENT [address] [place] [address], [place] [address] TEL: FAX: Type of Test: 48 Hour Holter Monitor Date of Test: 07/27/2024 Ordering Provider: Rc Knight NP Reason for Test: Persistent Atrial Fibrillation ?? PVCA Bill Sorter Findings: ?? 1: Atrial Flutter noted throughout [...] GEMUSE QTc 448 ms GEMUSE P Wave Cory 71 degrees GEMUSE R Cory 34 degrees GEMUSE T Cory 53 degrees GEMUSE ECG Interpretation Atrial flutter [...] (06/27/2024 10:44 AM EST) Left Atrium Minor Cory 6.7 cm CV PACS Left Atrium Major Cory 5.7 cm CV PACS LA Area Sys [...] Peak E Curt 1.33 m/s CV PACS [place] End Max Velocity 1.2 m/s CV PACS [...] Details Overall the study quality was adequate. Aracelis Bryant MD CV ECHO PROCEDURES Final Result * Annual BMP Blood Test (01/13/2024) Annual BMP Blood Test abstracted Historical Provider HEALTH MAINTENANCE Final Result * Lipid panel (01/13/2024) LDL/HDL Ratio 0 Comment:no interpretation, a bstracted Triglycerides 0 mg/dL Comment:no interpretation, a bstracted Cholesterol 0 mg/dL Comment:no interpretation, a bstracted HDL 0 mg/dL Comment:no interpretation, a bstracted LDL Cholesterol 0 mg/dL Comment:no interpretation, a bstracted Blood Venous blood specimen / Unknown Historical Provider LAB BLOOD ORDERABLES Mary l Result from Last 3 Months or Most Recently Relevant to Health Maintenance Insurance [employer] Care Teams Manpower Development Manager Relationship Specialty Start Date End Date Jamal eBnson MD [address] [place] [address] PCP - General Internal Medicine 06/27/24
--- OUTSIDE RECORDS SUMMARY | 2024-08-16 17:41 | XMS_ITS | Clinical Summary ---
Author Organization [facility] Address [address] [place] [phone] Phone Care Team Providers Care Veneer Jointer Returner Name Role Phone Dhruv Dolan DO Primary Care Provider [phone] Allergies No known active allergies Medications atenolol (TENORMIN) 25 MG tablet Take 1.5 tablets by mouth 1 (one) time each day Active atorvastatin (LIPITOR) 20 MG tablet Take 1 tablet by mouth at bed time Active Krill Oil (Mobile-3) 500 MG capsule Active levothyroxine (SYNTHROID, LEVOTHROID) [...] (1999 UT) capsule Take by mouth Active allopurinol (ZYLOPRIM) 300 MG tablet TAKE 1 TABLET BY MOUTH EVERY DAY 90 tablet 3 01/11/2024 Active fenofibrate (TRICOR) 48 MG tablet TAKE 1 TABLET BY MOUTH EVERY DAY 90 tablet 3 01/11/2024 Active allopurinol (ZYLOPRIM) 300 MG tablet Take 1 tablet (300 mg total) by mouth 1 (one) time each day 90 tablet 3 01/11/2024 01/11/20 25 Active Jardiance 10 MG tablet Take 10 mg by mouth 1 (one) time each day 11/11/2023 Active hydroCHLOROthia zide 12.5 MG tablet TAKE 1 TABLET(12.5 MG) BY MOUTH EVERY DAY 90 tablet 3 04/05/2024 Active tamsulosin (FLOMAX) 0.4 MG 24 hr capsule Take 1 capsule (0.4 mg total) by mouth 1 (one) time each day 90 capsule 3 08/14/2023 08/14/19 25 Active Problems Problem Noted Date [...] Orders Only [facility] [address] [phone] Chaparro Arroyo MD from Last 3 Months [...] Office Visit [facility] [address] [phone] Chaparro Arroyo MD [address] [address] Health Maintenance Due Date Last [...] Creatinine, Ur 68.3 Not Estab. mg/dL [facility] Protein, Ur 8.3 Not Estab. mg/dL [facility] Urine Protein/Creatin ine Ratio 122 0 - 200 mg/g [facility] 07/29/2024 9:41 AM EST 07/29/2024 Chaparro Arroyo MD LAB URINE ORDERABLES Final Re sult Performing Organization Address City/[facility]/ZIP Co de Phone Number [facility] [address] [place] [address] * Vitamin D 25 Hydroxy (07/29/2024 9:41 AM EST) Vitamin D, 25-OH, Total 37.9 30.0 - 100.0 ng/mL [facility] Comment: Vitamin D deficiency has been defined by the [place] [employer] and an Endocrine Society practice guideline as a level of serum 25-OH vitamin D less than 20 ng/mL (1,2). The Endocrine Society went on to further define vitamin D insufficiency as a level between 21 and 29 ng/mL (2). 1. IOM ([place] of [employer]). 2010. Dietary reference ?? intakes [...] ORDERABLES Final Re sult Performing Organization Address City/[facility]/ZIP [facility] Phone Number [facility] [address] [place] [address] * (ABNORMAL) CBC and Differential (07/29/2024 9:41 AM EST) WBC 6.7 3.4 - 10.8 x10E3/uL [facility] RBC 5.11 4.14 - 5.80 x10E6/uL [facility] Hemoglobin 15.9 13.0 - 17.7 g/dL [facility] Hematocrit 48.3 37.5 - 51.0 % [facility] MCV 95 79 - 97 fL [facility] MCH 31.1 26.6 - 33.0 pg [facility] MCHC 32.9 31.5 - 35.7 g/dL [facility] RDW 15.0 11.6 - 15.4 % [facility] Platelets 140(L) 150 - 450 x10E3/uL [facility] Neutrophils Relative 57 Not Estab. % [facility] Lymphocytes Relative 31 Not Estab. % [facility] Monocytes 10 Not Estab. % [facility] Eosinophils Relative 2 Not Estab. % [facility] Basophils Relative 0 Not Estab. % [facility] Neutrophils Absolute 3.8 1.4 - 7.0 x10E3/uL [facility] Lymphocytes Absolute 2.1 0.7 - 3.1 x10E3/uL [facility] Monocytes Absolute 0.7 0.1 - 0.9 x10E3/uL [facility] Eosinophils Absolute 0.1 0.0 - 0.4 x10E3/uL [facility] Basophils Absolute 0.0 0.0 - 0.2 x10E3/uL [facility] Immature Granulocytes 0 Not Estab. % [facility] Immature Grans (Absolute) 0.0 0.0 - 0.1 x10E3/uL [facility] 07/29/2024 9:41 AM EST 07/29/2024 us Chaparro Arroyo MD LAB BLOOD ORDERABLES Final Re sult Performing Organization Address City/[facility]/ZIP Co de Phone Number [facility] [address] [place] [address] * Uric Acid (07/29/2024 9:41 AM EST) Uric Acid 5.2 3.8 - 8.4 mg/dL [facility] Comment:Therapeutic target f or gout patients: <6.0 07/29/2024 9:41 AM EST 07/29/2024 us Chaparro Arroyo MD LAB BLOOD ORDERABLES Final Re sult Performing Organization Address [facility] Co de Phone Number [facility] [place] [address] [place] [address] * (ABNORMAL) Phosphorus (07/29/2024 9:41 AM EST) Phosphorus 2.6(L) 2.8 - 4.1 mg/dL [facility] 07/29/2024 9:41 AM EST 07/29/2024 us Chaparro Arroyo MD LAB BLOOD ORDERABLES Final Re sult Performing Organization Address City/[facility] Co de Phone Number [facility] [address] [place] [address] * PTH, Intact (07/29/2024 9:41 AM EST) PTH 28 15 - 65 pg/mL [facility] 07/29/2024 9:41 AM EST 07/29/2024 us Chaparro Arroyo MD LAB BLOOD ORDERABLES Final Re sult Performing Organization Address [facility] Co de Phone Number [facility] [place] [address] [place] [address] * Magnesium (07/29/2024 9:41 AM EST) Magnesium 2.1 1.6 - 2.3 mg/dL [facility] [place] 07/29/2024 9:41 AM EST 07/29/2024 us Chaparro Arroyo MD LAB BLOOD ORDERABLES Final Re sult Performing Organization Address [facility] de Phone Number [facility] [place] [address] [place] [address] * (ABNORMAL) Hemoglobin A1c (07/29/2024 9:41 AM EST) Hemoglobin A1C 5.8(H) 4.8 - 5.6 % [facility] Comment: ? Prediabetes: 5.7 - 6.4 ? Diabetes: >6.4 ? Glycemic control for adults with diabetes: <7.0 07/29/2024 9:41 AM EST 07/29/2024 us Chaparro Arroyo MD LAB BLOOD ORDERABLES Final Re sult Performing Organization Address [facility] Co de Phone Number [facility] [place] [address] [place] [address] * (ABNORMAL) Comprehensive Metabolic Panel (07/29/2024 9:41 AM EST) BUN 27 8 - 27 mg/dL [facility] Sodium 138 134 - 144 mmol/L [facility] Potassium 3.9 3.5 - 5.2 mmol/L [facility] Chloride 100 96 - 106 mmol/L [facility] Bicarbonate (CO2) 24 20 - 29 mmol/L [facility] Glucose 100(H) 70 - 99 mg/dL [facility] Creatinine 1.51(H) 0.76 - 1.27 mg/dL [facility] eGFR CKD-EPI CR 2020 47(L) >59 mL/min/1.7 3 [facility] BUN/Creatinine Ratio 18 10 - 24 [facility] Calcium 10.7(H) 8.6 - 10.2 mg/dL [facility] Comment:Verified by repeat analysis Total Protein 7.1 6.0 - 8.5 g/dL [facility] Albumin 4.6 3.8 - 4.8 g/dL [facility] Globulin 2.5 1.5 - 4.5 g/dL [facility] Total Bilirubin 0.7 0.0 - 1.2 mg/dL [facility] Alkaline Phosphatase 98 44 - 121 IU/L [facility] AST (SGOT) 29 0 - 40 IU/L [facility] ALT (SGPT) 22 0 - 44 IU/L [facility] 07/29/2024 9:41 AM EST 07/29/2024 us Chaparro Arroyo MD LAB BLOOD ORDERABLES Final Re sult [facility] [address] [place] [address] from Last 3 Months Insurance [facility] Care Teams Veneer Jointer Returner Relationship Specialty Start Date End Date Dhruv Dolan DO [address] [place] [address] PCP - General 06/11/20
== END 2024-08-16 15:29 | disposition home or self-care (01) ==
PROVIDERS: PCP Physician Assistant Medical; Visit Provider Hospitalist
DX: J01.90 Acute sinusitis, unspecified (principal); J40 Bronchitis, not specified as acute or chronic; U09.9 Post COVID-19 condition, unspecified
CPT/HCPCS: 99204

== ENCOUNTER → 2024-08-16 14:52 | Outpatient (BNVA) | payer MEDICARE, SELFPAY | PROVIDERS: PCP Physician Assistant Medical; Visit Provider Hospitalist | DX: J01.90 Acute sinusitis, unspecified (principal); J40 Bronchitis, not specified as acute or chronic; U09.9 Post COVID-19 condition, unspecified | CPT/HCPCS: 99202 ==

== ENCOUNTER 2024-08-17 14:33 | Outpatient (AMB) | payer MEDICARE, SELFPAY ==
--- NOTE | 2024-08-17 14:36 | A.OFFPC_ITS ---
Vital Signs 08/17/24 14:43 Height 5 ft 6.5 in Weight 170 lb BMI 27.0 BP 122/60 Blood Pressure Location Rt brachial Pulse 67 Pulse Source Pulse Oximeter Temp 97.5 F Pulse Oximetry (%) 96 Intake Visit Reasons: follow up - see comments Intake Note: had the flu and covid a couple of weeks ago but has bronchitis now Allergies No Known Allergies [No Known Allergies*] Allergy (Verified 08/17/24 15:08) Medication List - Last Reconciled 08/17/24 by Christie Marques PA-C albuterol sulfate 90 mcg/actuation 2 puffs inhalation Q6H PRN allopurinol 300 mg PO DAILY apixaban (Eliquis) mg PO apixaban (Eliquis) 5 mg PO BID aspirin 81 mg PO DAILY atenolol 37.5 mg PO DAILY atorvastatin 20 mg PO DAILY cholecalciferol (vitamin D3) 50 mcg PO DAILY empagliflozin (Jardiance) 10 mg PO DAILY fenofibrate nanocrystallized 48 mg PO DAILY finasteride mg PO DAILY hydrochlorothiazide mg PO DAILY krill oil mg PO levothyroxine 75 mcg PO DAILY cyacjaywvryj-tkcg-axeuv acid 18-400 mg-mcg (Centrum) 1 tab PO DAILY omeprazole 20 mg PO DAILY 90 days tamsulosin 0.4 mg PO DAILY PFS Medical History (Updated 08/17/24 @ 15:21 by Christie Marques PA-C) Overweight (BMI 25.0-29.9) Aortic stenosis Heart murmur CKD (chronic kidney disease) BPH (benign prostatic hyperplasia) Gout 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 Sinusitis On anticoagulant therapy Hypertension Hypothyroid Nephrolithiasis Atrial fibrillation Surgical History History of colonoscopy (~07/05/21) H/O left inguinal hernia repair History of arthroscopy of left knee History of vasectomy History of umbilical hernia repair History of inguinal hernia repair Family History Mother History of lung cancer Social History Alcohol intake: current Alcohol intake frequency: a few times a week Patient Tobacco Use Status: Former Tobacco user Physical exam (Primary Care) Vital Signs: Last Vital Signs Temp 97.5 F 08/17/24 14:43 Pulse 67 08/17/24 14:43 BP 122/60 08/17/24 14:43 Pulse Ox 96 08/17/24 14:43 Care Plan Goal for BP management: <130/80 at goal BMI result Body Mass Index 27.0 BMI Assessment/Plan discussion: High BMI High, discussed plan: lifestyle, weight reduction, dietary, physical activity and alcohol moderation Tobacco/Smoking Status: Tobacco use Status Patient Tobacco Use Status Former Tobacco user 08/17/24 14:38 Coding Level of Care Code New Pt Level 4 (05750) Complex EM visit Add On G2211 Diagnoses Bronchitis J40 CKD (chronic kidney disease) N18.9 Gout M10.9 BPH (benign prostatic hyperplasia) N40.0 Hypothyroid E03.9 Hypertension I10 Atrial fibrillation I48.91 Heart murmur R01.1 Aortic stenosis I35.0 Overweight (BMI 25.0-29.9) E66.3 On anticoagulant therapy Z79.01 Assessment & Plan Assessment & Plan (1) Bronchitis: Code(s): J40 - Bronchitis, not specified as acute or chronic Category: Medical Plan: Patient was recently seen by pulmonology and was started on Augmentin yesterday along with Neti pot and p.r.n. albuterol inhaler if he absolutely needs it. Patient has follow-up. Patient has outpatient blood work ordered. Condition is stable continue to monitor. (2) CKD (chronic kidney disease): Comment: GFR 47 Code(s): N18.9 - Chronic kidney disease, unspecified Category: Medical Plan: Patient with CKD with GFR of 47. Patient being followed by Nephrology. Condition is chronic and stable continue to monitor. (3) Gout: Code(s): M10.9 - Gout, unspecified Category: Medical Plan: Patient currently on allopurinol 300 mg daily. Denies any recent flare-up. Condition is chronic and stable continue to monitor. (4) BPH (benign prostatic hyperplasia): Code(s): N40.0 - Benign prostatic hyperplasia without lower urinary tract symptoms Category: Medical Plan: Patient with history of BPH currently on tamsulosin 0.4 mg daily along with finasteride. Condition is chronic and stable will continue to monitor. (5) Hypothyroid: Code(s): E03.9 - Hypothyroidism, unspecified Category: Medical Plan: Patient currently on levothyroxine 75 mcg daily. Condition is chronic and stable continue to monitor. (6) Hypertension: Code(s): I10 - Essential (primary) hypertension Category: Medical Plan: Blood pressure goal less than 130/80. At goal today. Patient will continue taking Eliquis 5 mg p.o. b.i.d., aspirin 81 mg daily, atenolol 37.5 mg daily, atorvastatin 20 mg daily, hydrochlorothiazide 12.5 mg daily. Condition is chronic and stable will continue to monitor (7) Atrial fibrillation: Comment: sees @ Cardiology- Code(s): I48.91 - Unspecified atrial fibrillation Category: Medical Plan: Patient currently on aspirin and Eliquis taking as prescribed being followed by Cardiology. Condition is chronic and stable continue to monitor. (8) Heart murmur: Code(s): R01.1 - Cardiac murmur, unspecified Category: Medical Plan: Patient currently on aspirin and Eliquis taking as prescribed being followed by Cardiology. Condition is chronic and stable continue to monitor. (9) Aortic stenosis: Code(s): I35.0 - Nonrheumatic aortic (valve) stenosis Category: Medical Plan: Patient currently on aspirin and Eliquis taking as prescribed being followed by Cardiology. Condition is chronic and stable continue to monitor. (10) Overweight (BMI 25.0-29.9): Code(s): E66.3 - Overweight Category: Medical Plan: Patient to improve his diet and exercise regimen. Condition is chronic and stable continue to monitor. (11) On anticoagulant therapy: Comment: taking eliquis-afib. 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 AFib is controlled. Will continue current regimen of Eliquis 5 mg p.o. b.i.d.. Condition is chronic and stable continue to monitor. Plan Plan Patient was informed and verbally consented to the use of an ambient scribe for clinic note documentation during this visit. 1. Essential Hypertension Ongoing blood pressure management with current antihypertensive regimen advised. 3. Benign Prostatic Hyperplasia Maintain medication regime watching for any symptom change. 4. Fatigue Emphasis on rest and examination through blood work to assess health status. Monitor nutritional intake and weight. 5. Atrial Fibrillation Anticoagulation therapy to continue. Periodic cardiac evaluations confirmed no new issues. 6. Aortic Stenosis No acute interventions necessary, cardiology follow-ups planned. 7. Gout Continue Allopurinol monitoring efficacy, adjusting as needed. 8. Covid-19 Recovery is complete with negligible complications requiring intervention. Continue observing for lingering symptoms. 9. Hyperlipidemia Maintain current therapy. Lipid panel scheduled for fasting blood work. 10. Chronic Kidney Disease Continue nephrology oversight with no modifications to current plan following stable test results. 11. Influenza Past influenza resolved, continuous monitoring for any fatigue related aftermath. Discussion Notes During the consultation, I discussed the recovery from COVID-19 and the recent flu symptoms that the patient experienced. Given the persistent fatigue, comprehensive blood tests have been planned to evaluate any underlying deficiencies or changes in health status. For ongoing conditions like atrial fibrillation, Ivasulated the continuous use of Eliquis while monitoring cardiac health through scheduled follow-ups. The approach for hyperlipidemia and hypothyroidism remains steady with ongoing pharmacological treatments. Additionally, the nephrology care plan remains unchanged following recent evaluations showing stabilization of kidney functions. I emphasized the impor tance of scheduled lipid and thyroid panels, particularly fasting for accuracy. The discussion also covered aortic stenosis management, with echocardiograms planned to track any progression. I ensured the patient understands to monitor weight and nutrition due to previous weight loss during illness. Finally, I instructed the steps for obtaining blood work through the clinic protocol. Orders: Orders Magnesium 08/17/24 Z00.00 - Encounter for general adult medical examination without abnormal findings Vitamin D 25-OH Total 08/17/24 Z00. - Encounter for general adult medical examination without abnormal findings Vitamin B1 08/17/24 Z00. - Encounter for general adult medical examination without abnormal findings Parathyroid Hormone Intact 08/17/24 Z00. - Encounter for general adult medical examination without abnormal findings Lipid Panel 08/17/24 Z. - Encounter for general adult medical examination without abnormal findings Liver Panel 08/17/24 Z. - Encounter for general adult medical examination without abnormal findings Hemoglobin A1c 08/17/24 Z00. - Encounter for general adult medical examinati on without abnormal findings Testosterone, Total 08/17/24 Z. - Encounter for general adult medical examination without abnormal findings TSH reflex Free T4 08/17/24 Z00.00 - Encounter for general adult medical examination without abnormal findings Vitamin B12 and Folate 08/17/24 Z00.00 - Encounter for general adult medical examination without abnormal findings Zinc 08/17/24 Z00.00 - Encounter for general adult medical examination without abnormal findings Phosphorus 08/17/24 Z00.00 - Encounter for general adult medical examination without abnormal findings Patient Instructions: Patient Instructions - Continue prescribed medications for blood pressure, thyroid, gout, and prostate health. - Monitor for any resurgence of symptoms related to respiratory illness. - Schedule and complete fasting lab tests as discussed. - Maintain a balanced diet and monitor weight, considering recent weight loss. - Be attentive to signs of fatigue and rest as needed. - Follow-up with nephrology and cardiology as scheduled. - If unusual symptoms occur, report promptly, especially concerning cardiovascular symptoms or unusual fatigue. - Return for follow-up if laboratory tests reveal abnormalities or symptoms exacerbate prior to the 6-month check-up. Scribe Plan - Not visible on output: History of Present Illness The patient is a 79-year-old male presenting with recent successful recovery from COVID-19 this past week, prior influenza symptoms, and notable fatigue. In May, he began a period of health decline starting with a viral infection, subsequently diagnosed with influenza in July. His fatigue and abrupt sensation of hitting a wall, particularly exacerbated during periods of physical exertion, have lingered since these infections. Due to this patient went to see Dr. 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 Patient is started Augmentin 875 mg twice a day yesterday. He also prescribed him a Neti bottle. This is for his sinuses. He gave him an albuterol inhaler although patient is to be very careful not to use this to often to prevent any participate of his atrial fibrillation. Patient reports he was also sent for some blood work although Dr. Cummins told him not to get the blood work done until the patient seen us due to we would possibly add more blood work which is In relation to his chronic medical history, the patient reports essential hypertension, atrial fibrillation currently managed on Eliquis, moderate stenosis from aortic stenosis, and longstanding conditions including gout, benign prostatic hyperplasia, chronic kidney disease, hypothyroidism, and hyperlipidemia. Due to these underlying conditions, he remains vigilant in closely monitoring his symptoms and obtaining regular medical follow-ups to evaluate these chronic disorders' stability. 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. - No mention of smoking, alcohol, or recreational substance use. - Recent significant involuntary weight loss. - Engages in physical activity such as using a treadmill when health permits. Review of Systems - Constitutional: Reports fatigue, decreased appetite, weight loss of 10-11 pounds. - Respiratory: Denies worsening shortness of breath and coughing is improved. - Cardiovascular: Denies chest pain, denies leg swelling. - Gastrointestinal: Denies diarrhea, vomiting, black or bloody stools. - Neurological: Reports lightheadedness and feeling spacey during recent illness. Physical Exam Appearance: Alert. Oriented X3. No acute distress. Head: Normal external exam. Normocephalic. Atraumatic. Eyes: Pupils are equal, round, and reactive to light. Extraocular movements intact. Conjunctiva and sclera normal. Eyelids normal. Ears: External auditory canal normal. Tympanic membranes normal. Throat: Pharynx normal. Uvula midline. Moist mucous membranes. Neck: Normal inspection. Neck supple. Full range of motion. No adenopathy. Thyroid Normal. No meningeal signs. No neck mass noted. Cardiovascular: Normal heart rate and rhythm. Heart sound normal. Heart murmur noted. Aortic stenosis present. No changes in recent echo compared to six months or a year ago. Pulses normal throughout. Respiratory: No respiratory distress. Painless inspiration. Breath sounds normal. No wheezes/rales/rhonchi noted. Chest nontender. No accessory muscle usage noted or decreased air movement noted. Abdomen: Soft and nontender. Bowel sounds normal in all 4 quadrants. No distention noted. No organomegaly noted. No visible injury noted. Back: No costovertebral angle tenderness. Full range of motion noted. Skin: Skin warm and dry. Normal skin color. Normal skin turgor. No rashes/lesions/lacerations noted. Extremities: No lower extremity edema. Extremities exhibit normal range of motion. Extremities nontender. Neuro: Oriented X 3. No motor deficit. No sensory deficit. Reflexes normal. Results - Labs: CBC, IgG, IgA, IgM, immunoglobulin E, ESR, CRP, comprehensive metabolic panel, ordered. - Additional future lab tests ordered: Magnesium, liver enzymes, parathyroid hormone, testosterone level, TSH, vitamin B1, vitamin D, zinc, vitamin B12, folate, and A1c level. - Future lab fasting required for Lipid panel evaluation.
[2024-08-17 14:43] VITALS: BP 122/60; PULSE 67; TEMP 36.4; O2SAT 96; BMI 27.0
== END 2024-08-17 15:04 | disposition home or self-care (01) ==
LOC: HO.HMCSH 14:33
PROVIDERS: PCP Physician Assistant Medical; Visit Provider Physician Assistant Medical
DX: J40 Bronchitis, not specified as acute or chronic (principal); N18.9 Chronic kidney disease, unspecified; I12.9 Hypertensive chronic kidney disease with stage 1 through stage 4 chronic kidney disease, or unspecified chronic kidney disease; M10.9 Gout, unspecified; N40.0 Benign prostatic hyperplasia without lower urinary tract symptoms; E03.9 Hypothyroidism, unspecified; I48.91 Unspecified atrial fibrillation; R01.1 Cardiac murmur, unspecified; I35.0 Nonrheumatic aortic (valve) stenosis; E66.3 Overweight; Z79.01 Long term (current) use of anticoagulants

== ENCOUNTER → 2024-08-17 14:33 | Outpatient (BNVA) | payer MEDICARE, SELFPAY | PROVIDERS: PCP Physician Assistant Medical; Visit Provider Physician Assistant Medical | DX: J40 Bronchitis, not specified as acute or chronic (principal); I12.9 Hypertensive chronic kidney disease with stage 1 through stage 4 chronic kidney disease, or unspecified chronic kidney disease; N18.9 Chronic kidney disease, unspecified; M10.9 Gout, unspecified; N40.0 Benign prostatic hyperplasia without lower urinary tract symptoms; E03.9 Hypothyroidism, unspecified; I48.91 Unspecified atrial fibrillation; R01.1 Cardiac murmur, unspecified; I35.0 Nonrheumatic aortic (valve) stenosis; E66.3 Overweight; Z68.27 Body mass index [BMI] 27.0-27.9, adult; Z79.01 Long term (current) use of anticoagulants | CPT/HCPCS: 99202 ==

== ENCOUNTER 2025-04-03 09:53 | Outpatient (AMB) | payer MEDICARE, SELFPAY ==
--- NOTE | 2025-04-03 10:19 | MHC.PC.OV ---
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 Required: No Accompanied by: Self / Same As Patient Allergies No Known Allergies (No Known Allergies*) Allergy (Verified 04/03/25 10:20) Tobacco use date assessed: 04/03/25 Fall risk assessment: No Falls in past year Last assessed Fall Risk: 04/03/25 Dental Screening Dental Screen Date: 04/03/25 Did you have a dental visit in the last 12 months?: Yes Did you have a dental problem in the last 6 months where you did not have access to dental care?: No Was dental information given to patient?: Patient has dentist [facility] Medical History Overweight (BMI 25.0-29.9) Aortic stenosis Heart murmur CKD (chronic kidney disease) BPH (benign prostatic hyperplasia) Gout 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 Sinusitis On anticoagulant therapy Hypertension Hypothyroid Nephrolithiasis Atrial fibrillation Surgical History History of colonoscopy (~07/05/21) H/O left inguinal hernia repair History of arthroscopy of left knee History of vasectomy History of umbilical hernia repair History of inguinal hernia repair Family History Mother History of lung cancer Social History (Updated 04/03/25 @ 10:29 by LARON Patterson) Housing: House Alcohol intake: current Alcohol intake frequency: holidays/special occasions only Patient Tobacco Use Status: Never used Tobacco service: Yes Current occupational status: retired Cognitive needs: No Hearing needs: Yes (b/l hearing aids) Vision needs: Yes (rx glasses) Questionnaire PHQ-9 Over the last 2 weeks, how often have you been bothered by any of the following problems? 1. Little interest or pleasure in doing things: not at all 2. Feeling down, depressed, or hopeless: not at all 3. Trouble falling or staying asleep, or sleeping too much: not at all 4. Feeling tired or having little energy: not at all 5. Poor appetite or overeating: not at all 6. Feeling bad about yourself - or that you are a failure or have let yourself or your family down: not at all 7. Trouble concentrating on things, such as reading the newspaper or watching television: not at all 8. Moving or speaking so slowly that other people could have noticed. Or the opposite - being so fidgety or restless that you have been moving around a lot more than usual: not at all 9. Thoughts that you would be better off or of hurting yourself in some way: not at all Total score: 0 Source: Developed by Drs. Dhruv Barron, Karyn Bingham, Tom Velarde and colleagues, with an educational shahzad from [employer]. Thrive Questionnaire Date Thrive assessed: 04/03/25 I am a: Patient What is your living situation today?: I have a steady place to live Within the past 12 months, did the food you bought not last and you didn't have the money to get more?: Never true Within the past 12 months, did you worry whether your food would run out before you got money to buy more?: Never true Do you have trouble getting transportation to medical appointments?: No Do you have trouble paying your heating and electricity bill?: No Do you have trouble taking care of your child, family member or friend?: No Do you have trouble with day-to-day activities such as bathing, preparing meals, shopping, managing finances, etc.?: No Are you currently unemployed and looking for a job?: No Are you interested in more education?: No Please select the resources that you would like help with: None THRIVE Score: 0 AUDIT C Alcohol Use Questionnaire (AUDIT-C) 1. How often do you have a drink containing alcohol?: Monthly or less 2. How many drinks containing alcohol do you have on a typical day when you are drinking?: 1 or 2 3. How often do you have six or more drinks on one occasion?: Never Total Score: 1 NEELA-7 AMB Questionnaire NEELA-7 Date NEELA - 7 assessed: 04/03/25 Feeling nervous, anxious, or on edge: 0 = Not at all Not being able to stop or control worryin = Not at all Worrying too much about different things: 0 = Not at all Trouble relaxin = Not at all Being so restless that it is hard to sit still: 0 = Not at all Becoming easily annoyed or irritable: 0 = Not at all Feeling afraid as if something awful might happen: 0 = Not at all Total NEELA-7 score (0-4 normal; 5-9 mild; 10-14 moderate; 15-21 severe): 0 Source: Developed by Drs. Dhruv Barron, Karyn Bingham, Tom Velarde and colleagues, with an educational shahzad from [employer]. Physical exam (Primary Care) Vital Signs: Last Vital Signs Temp 97.5 F 04/03/25 10:20 Pulse 66 04/03/25 10:20 Resp 14 04/03/25 10:20 BP 165/74 H 04/03/25 10:30 Pulse Ox 98 04/03/25 10:20 Oxygen Delivery Method Room Air 04/03/25 10:20 BMI result Body Mass Index 28.8 Tobacco/Smoking Status: Tobacco use Status Tobacco use date assessed 04/03/25 04/03/25 10:21 Patient Tobacco Use Status Never used Tobacco 04/03/25 10:29 PHQ-9: PHQ-9 Score PHQ-9: Total score 0 04/03/25 10:29 Thrive Assessment: Date of Thrive Assessment Date Thrive assessed 04/03/25 04/03/25 10:21 Office Procedures Flu Questionnaire Does the patient have a severe egg allergy?: No Does the patient have severe life threatening allergies?: No Does the patient have a fever or illness today?: No Has the patient ever had Guillain-Lithia Syndrome?: No Has the patient ever had any past reaction to a flu shot?: No Immunizations Fluarix [id number] (PF) 45 mcg (15 mcg x 3)/0.5 mL IM syringe Performing Provider: Jamal Benson MD [facility] Documented (not given) by: LARON Patterson on 04/03/25 10:31 Reason Not Given: Patient Refused Coding Diagnoses Hypertension I10 Assessment & Plan Assessment & Plan (1) Hypertension: Code(s): I10 - Essential (primary) hypertension Category: Medical Orders: Orders Basic Metabolic Panel Today I10 - Essential (primary) hypertension Thyroid Stimulating Hormone Today I10 - Essential (primary) hypertension UA and rflx microscopic Today I10 - Essential (primary) hypertension XR shoulder LT min 2V Today S43.402A - Unspecified sprain of left shoulder joint, initial encounter Influenza [id number] Immunization Today Z23 - Encounter for immunization Complete Blood Count no Diff Today I10 - Essential (primary) hypertension Lipid Panel Today I10 - Essential (primary) hypertension Liver Panel Today I10 - Essential (primary) hypertension
[2025-04-03 10:20] VITALS: BP 164/78; PULSE 66; RESP 14; TEMP 36.4; O2SAT 98; BMI 28.8
[2025-04-03 10:30] VITALS: BP 165/74
--- OUTSIDE RECORDS SUMMARY | 2025-04-03 11:30 | XMS_ITS | Clinical Summary ---
Author Organization [facility]. Address [address] [place] [phone] Phone Care Team Providers Care Glycerin Operator Name Role Phone Jamal Benson MD Primary Care Provider + Allergies No known active allergies Medications atenolol (TENORMIN) 25 MG tablet Take 1.5 tablets by mouth 1 (one) time each day Active atorvastatin (LIPITOR) 20 MG tablet Take 1 tablet by mouth at bed time Active Krill Oil (Aurora-3) 500 MG capsule Active levothyroxine (SYNTHROID, LEVOTHROID) 75 MCG tablet Take 1 tablet by mouth 1 (one) time each day Active omeprazole (PriLOSEC) [address] capsule Take 1 capsule by mouth 1 (one) time each day 8 Active Eliquis 5 MG tablet Take 5 mg by mouth 2 (two) times a day 2 Active finasteride (PROSCAR) 5 MG tablet Take 5 mg by mouth at bed time 2 Active Cholecalcifero l 50 MCG (1999) capsule Take by mouth Active Jardiance 10 MG tablet Take 10 mg by mouth 1 (one) time each day 4 Active aspirin (ST SUE) 81 MG EC tablet Take 81 mg by mouth in the morning. Active Flomax 0.4 MG 24 hr capsule Take 1 capsule (0.4 mg total) by mouth 1 (one) time each day 90 capsule 3 5 Active allopurinol (ZYLOPRIM) 300 MG tablet TAKE 1 TABLET BY MOUTH EVERY DAY 90 tablet 3 05/06/202 5 Active fenofibrate (TRICOR) 48 MG tablet Take 1 tablet (48 mg total) by mouth 1 (one) time each day 90 tablet 3 5 Active colchicine 0.6 MG tablet Take two tabs at the onset of gout. Then take 1 tabled 12 hours later. Then one tablet daily for 4 days. Then stop 21 tablet 3 5 Active hydroCHLOROthi azide 12.5 MG tablet TAKE 1 TABLET(12.5 MG) BY MOUTH EVERY DAY 90 tablet 3 5 Active hydroCHLOROthi azide 12.5 MG tablet TAKE 1 TABLET(12.5 MG) BY MOUTH EVERY DAY 90 tablet 3 4 03/26/20 25 Discontinued Active Problems Problem Noted Date Diagnosed [...] monitor. Glomerulonephritis 08/14/2020 Preprocedural cardiovascular examination done 06/27/19 21 05/06/2023 07/29/2023 Overview (05/06/2023): Last Assessment & [...] Encounters Date Type Department Care Team Description 03/25/2025 Refill [facility] [address] [facility] [address] [place] [address] Chaparro Arroyo MD 02/20/2025 Refill [facility] [address] [phone] Mishel Lemus 02/17/2025 Orders Only [facility] [address] [phone] Chaparro Arroyo MD Stage 3b chronic kidney disease (HCC); Secondary hyperparathyroidism (HCC); Paroxysmal atrial fibrillation (HCC); Vitamin D deficiency, not otherwise specified; Nephrotic syndrome, diffuse membranous glomerulonephritis; Localized edema; Hypertension; Hypercalcemia; History of calculus of kidney; Gout, not otherwise specified; Dyslipidemia; Coronary arteriosclerosis, not otherwise specified; Aortic valve stenosis; Anemia in chronic kidney disease; Other acute kidney failure (HCC) 02/16/2025 8:00 AM EDT Office Visit [facility] [address] [phone] Chaparro Arroyo MD Nephrotic syndrome, diffuse membranous glomerulonephritis (Primary Dx); Stage 3b chronic kidney disease (HCC); Vitamin D deficiency, not otherwise specified; Secondary hyperparathyroidism (HCC); Paroxysmal atrial fibrillation (HCC); Localized edema; Hypertension; Hypercalcemia; History of calculus of kidney; Dyslipidemia; Gout, not otherwise specified; Coronary arteriosclerosis, not otherwise specified 02/13/2025 Orders Only [facility] [address] [place] [phone] Chaparro Arroyo MD 01/20/2025 Refill [facility] [address] [facility] [address] [place] [phone] Brooke Moyer 01/19/2025 Refill [facility] [address] [facility] [address] [place] [phone] Evelyn Patterson from Last 3 Months Immunizations Immunization Administration Dates Next Due Influenza Split High [...] Sign Reading Time Taken Comments Blood Pressure 142/80 02/16/2025 7:59 AM EDT Pulse 63 02/16/2025 7:59 AM EDT Temperature - - Respiratory Rate - - Oxygen Saturation 99% 02/16/2025 7:59 AM EDT Inhaled Oxygen Concentration - - Weight 82.1 kg (181 lb) 02/16/2025 7:59 AM EDT Height 170.2 cm (5' 7 ) 08/17/2024 9:09 AM EDT Body Mass Index 28.35 08/17/2024 9:09 AM EDT Plan of Treatment Upcoming Encounters Date Type Department Care Team (Late st Contact Info) Description 08/17/2025 8:20 AM EDT Office Visit [facility] [address] [phone] Chaparro Arroyo MD [address] [phone] Health Maintenance Due Date Last Done Comments Pneumococcal Vaccine: 50+ Years (1 of 2 - PCV) 1964 Influenza Vaccine (#1) 2025 0, 03/30/2019, 03/01/2019, Additional history exists Hepatitis B Vaccine Aged Out No longe r eligible based on patient's age to complete this topic Procedures Procedure Name Priority Date/Time Associated Diagnosis Comments PTH, INTACT Routine 02/13/2025 12:09 PM EDT MAGNESIUM Routine 02/13/2025 12:09 PM EDT PHOSPHATE ( PHOSPHORUS) Routine 02/13/2025 12:09 PM EDT URIC ACID Routine 02/13/2025 12:09 PM EDT VITAMIN D 25 HYDROXY Routine 02/13/2025 12:09 PM EDT PROTEIN / CREATININE RATIO, URINE Routine 02/13/2025 12:09 PM EDT COMPREHENSIVE METABOLIC PANEL Routine 02/13/2025 12:09 PM EDT CBC DIFF AMBIGUOUS DEFAULT - DO NOT USE Routine 02/13/2025 12:09 PM EDT from Last 3 Months Results * (ABNORMAL) CBC Diff Ambiguous Default (02/13/2025 12:09 PM EDT) WBC 7.6 3.4 - 10.8 x10E3/uL [facility] RBC 5.07 4.14 - 5.80 x10E6/uL [facility] Hemoglobin 15.9 13.0 - 17.7 g/dL [facility] Hematocrit 47.4 37.5 - 51.0 % [facility] MCV 94 79 - 97 fL [facility] MCH 31.4 26.6 - 33.0 pg [facility] MCHC 33.5 31.5 - 35.7 g/dL [facility] RDW 15.4 11.6 - 15.4 % [facility] Platelets 141(L) 150 - 450 x10E3/uL [facility] Neutrophils Relative 57 Not Estab. % [facility] Lymphocytes Relative 32 Not Estab. % [facility] Monocytes 10 Not Estab. % [facility] Eosinophils Relative 1 Not Estab. % [facility] Basophils Relative 0 Not Estab. % [facility] Neutrophils Absolute 4.3 1.4 - 7.0 x10E3/uL [facility] Lymphocytes Absolute 2.5 0.7 - 3.1 x10E3/uL [facility] Monocytes Absolute 0.8 0.1 - 0.9 x10E3/uL [facility] Eosinophils Absolute 0.1 0.0 - 0.4 x10E3/uL [facility] Basophils Absolute 0.0 0.0 - 0.2 x10E3/uL [facility] Immature Granulocytes 0 Not Estab. % [facility] Immature Grans (Absolute) 0.0 0.0 - 0.1 x10E3/uL [facility] Comment: A hand-written panel/profile was received from your office. In accordance with the [facility] Ambiguous Test Code Policy dated November 2002, we have assigned CBC with Differential/Platelet, Test Code #179567 to this request. If this is not the testing you wished to receive on this specimen, please [facility] Services [facility] to clarify the test order. We appreciate your business. 02/13/2025 12:0 9 PM EDT 02/13/2025 Chaparro Arroyo MD LAB BLOOD ORDERABLES Final Re sult Performing Organization Address [facility] Co de Phone Number [facility] [address] [place] [address] * Protein, Total, Random Urine w/Creatinine (Protein/Creat Ratio) (02/13/2025 12:09 PM EDT) Creatinine, Ur 74.9 Not Estab. mg/dL [facility] Protein, Ur 13.1 Not Estab. mg/dL [facility] Urine Protein/Creatin ine Ratio 175 0 - 200 mg/g creat [facility] 02/13/2025 12:0 9 PM EDT 02/13/2025 Chaparro Arroyo MD LAB URINE ORDERABLES Final Re sult Performing Organization Address [facility] Co de Phone Number [facility] [address] [place] [address] * Vitamin D 25 Hydroxy (02/13/2025 12:09 PM EDT) Vitamin D, 25-OH, Total 40.8 30.0 - 100.0 ng/mL [facility] Comment: Vitamin D deficiency has been defined by the [place] of Medicine and an Endocrine Society practice guideline as a level of serum 25-OH vitamin D less than 20 ng/mL (1,2). The Endocrine Society went on to further define vitamin D insufficiency as a level between 21 and 29 ng/mL (2). 1. IOM ([place] of Medicine). 2010. Dietary reference intakes for calcium and D. [place]: The National Academies Press. 2. Mikaela MF, Chris ARDON, Elle VIDAL, et al. Evaluation, treatment, and prevention of vitamin D deficiency: an Endocrine Society clinical practice guideline. JCEM. 2010; 96(7):1911-30. 02/13/2025 12:0 9 PM EDT 02/13/2025 Chaparro Arroyo MD LAB BLOOD ORDERABLES Final Re sult [facility] [address] [place] [address] * Uric Acid (02/13/2025 12:09 PM EDT) Uric Acid 4.8 3.8 - 8.4 mg/dL [facility] Comment:Therapeutic target f or gout patients: <6.0 02/13/2025 12:0 9 PM EDT 02/13/2025 us Chaparro Arroyo MD LAB BLOOD ORDERABLES Final Re sult Performing Organization Address City/[facility]/ZIP Co de Phone Number [facility] [address] [place] [address] * (ABNORMAL) Phosphorus (02/13/2025 12:09 PM EDT) Phosphorus 2.7(L) 2.8 - 4.1 mg/dL [facility] 02/13/2025 12:0 9 PM EDT 02/13/2025 us Chaparro Arroyo MD LAB BLOOD ORDERABLES Final Re sult Performing Organization Address City/[facility]/ZIP Co de Phone Number [facility] [address] [place] [address] * PTH, Intact (02/13/2025 12:09 PM EDT) Pathologist [facility] PTH 32 15 - 65 pg/mL [facility] 02/13/2025 12:0 9 PM EDT 02/13/2025 Chaparro Arroyo MD LAB BLOOD ORDERABLES Final Re sult Performing Organization Address City/[facility]/ZIP Co de Phone Number [facility] [address] [place] [address] * Magnesium (02/13/2025 12:09 PM EDT) [facility] Magnesium 2.3 1.6 - 2.3 mg/dL [facility] 02/13/2025 12:0 9 PM EDT 02/13/2025 Chaparro Arroyo MD LAB BLOOD ORDERABLES Final Re sult Performing Organization Address City/[facility]/ZIP Co de Phone Number [facility] [address] [place] [address] * (ABNORMAL) Comprehensive Metabolic Panel (02/13/2025 12:09 PM EDT) Pathologist [facility] Glucose 84 70 - 99 mg/dL [facility] BUN 24 8 - 27 mg/dL [facility] Creatinine 1.54(H) 0.76 - 1.27 mg/dL [facility] eGFR CKD-EPI CR 2020 46(L) >59 mL/min/1.7 3 [facility] BUN/Creatinine Ratio 16 10 - 24 [facility] Sodium 137 134 - 144 mmol/L [facility] Potassium 4.1 3.5 - 5.2 mmol/L [facility] Chloride 99 96 - 106 mmol/L [facility] Bicarbonate (CO2) 22 20 - 29 mmol/L [facility] Calcium 10.7(H) 8.6 - 10.2 mg/dL [facility] Total Protein 7.3 6.0 - 8.5 g/dL [facility] Albumin 4.5 3.8 - 4.8 g/dL [facility] Globulin 2.8 1.5 - 4.5 g/dL [facility] Total Bilirubin 0.6 0.0 - 1.2 mg/dL [facility] Alkaline Phosphatase 102 49 - 135 IU/L [facility] Comment:Please note refere nce interval change AST (SGOT) 27 0 - 40 IU/L [facility] ALT (SGPT) 22 0 - 44 IU/L [facility] 02/13/2025 12:0 9 PM EDT 02/13/2025 us Chaparro Arroyo MD LAB BLOOD ORDERABLES Final Re sult [facility] [address] [place] [phone] from Last 3 Months Insurance [facility] Care Teams Glycerin Operator Relationship Specialty Start Date End Date Jamal Benson MD [address] [place] [address] PCP - General Internal Medicine 08/17/24
== END 2025-04-03 10:39 | disposition home or self-care (01) ==
LOC: HO.HMCSH 09:53
PROVIDERS: PCP Internal Medicine; Visit Provider Internal Medicine
DX: Z23 Encounter for immunization (principal)

== ENCOUNTER → 2025-04-03 09:53 | Outpatient (BNVA) | payer MEDICARE, SELFPAY | PROVIDERS: PCP Internal Medicine; Visit Provider Internal Medicine | DX: Z00.00 Encounter for general adult medical examination without abnormal findings (principal); I10 Essential (primary) hypertension; Z28.21 Immunization not carried out because of patient refusal | CPT/HCPCS: 90471; 96127; 99397 ==

== ENCOUNTER 2025-04-07 06:28 | Outpatient (REF) | payer MEDICARE, SELFPAY ==
--- NOTE | ~2025-04-07 | XR_ITS ---
EXAMINATION: XR SHOULDER 2 OR MORE VIEWS LEFT HISTORY: S43.402A - Unspecified sprain of left shoulder joint, initial encounter COMPARISON: There are no prior studies available for comparison. FINDINGS: Four views of the left shoulder are submitted. Osseous mineralization is normal. There is no fracture or dislocation. The glenohumeral joint is maintained. There is moderate osteoarthritis of the AC joint, with joint space narrowing. The soft tissues are unremarkable. XR/XR shoulder LT min 2V IMPRESSION: Moderate osteoarthritis of the AC joint. Electronically signed by: Dhruv Murray MD 04/07/2025 07:04 AM NANCY
--- OUTSIDE RECORDS SUMMARY | 2025-04-07 06:30 | XMS_ITS | Clinical Summary ---
Author Organization [facility]. Address [address] [place] [phone] Phone Care Team Providers Care Knifeman Name Role Phone Jamal Benson MD Primary Care Provider + Allergies No known active allergies Medications atenolol (TENORMIN) 25 MG tablet Take 1.5 tablets by mouth 1 (one) time each day Active atorvastatin (LIPITOR) 20 MG tablet Take 1 tablet by mouth at bed time Active Krill Oil ([place]-3) 500 MG capsule Active levothyroxine (SYNTHROID, LEVOTHROID) [...] [facility] [address] [facility] 200 [place] [address] Chaparro Arroyo MD 02/20/2025 Refill [facility] [address] [address] Mishel Lemus 02/17/2025 Orders Only [facility] [address] [phone] Chaparro Arroyo MD Stage 3b chronic kidney [...] Office Visit [facility] [address] [address] Chaparro Arroyo MD Nephrotic syndrome, diffuse membranous glomerulonephritis (Primary Dx); Stage 3b chronic kidney disease (HCC); Vitamin D deficiency, not otherwise specified; Secondary hyperparathyroidism (HCC); Paroxysmal atrial fibrillation (HCC); Localized edema; Hypertension; Hypercalcemia; History of calculus of kidney; Dyslipidemia; Gout, not otherwise specified; Coronary arteriosclerosis, not otherwise specified 02/13/2025 Orders Only [facility] [address] [place] [phone] Chaparro Arroyo MD 01/20/2025 Refill [facility] [address] [facility] 204 [place] [phone] Brooke Moyer 01/19/2025 Refill [facility] [address] [facility] [address] [place] [phone] Evelyn Patterson from Last 3 Months Immunizations [...] Office Visit [facility] [address] [phone] Chaparro Arroyo MD [address] [address] Health Maintenance Due Date Last [...] WBC 7.6 3.4 - 10.8 x10E3/uL [facility] RBC 5.07 4.14 - 5.80 x10E6/uL [facility] Hemoglobin 15.9 13.0 - 17.7 g/dL [facility] Hematocrit 47.4 37.5 - 51.0 % [facility] MCV 94 79 - 97 fL [facility] MCH 31.4 26.6 - 33.0 pg [facility] MCHC 33.5 31.5 - 35.7 g/dL [facility] RDW 15.4 11.6 - 15.4 % [facility] Platelets 141(L) 150 - 450 x10E3/uL [facility] Neutrophils Relative 57 Not Estab. % [facility] Lymphocytes Relative 32 Not Estab. % [facility] Monocytes 10 Not Estab. % [facility] Eosinophils Relative 1 Not Estab. % [facility] Basophils Relative 0 Not Estab. % [facility] Neutrophils Absolute 4.3 1.4 - 7.0 x10E3/uL [facility] Lymphocytes Absolute 2.5 0.7 - 3.1 x10E3/uL [facility] Monocytes Absolute 0.8 0.1 - 0.9 x10E3/uL [facility] Eosinophils Absolute 0.1 0.0 - 0.4 x10E3/uL [facility] Basophils Absolute 0.0 0.0 - 0.2 x10E3/uL [facility] Immature Granulocytes 0 Not Estab. % [facility] Immature Grans (Absolute) 0.0 0.0 - 0.1 x10E3/uL [facility] Comment: A hand-written panel/profile was received from your office. In accordance with the [facility] Ambiguous Test Code Policy dated November 2002, we have assigned CBC with Differential/Platelet, Test Code #[id number] to this request. If this is not the testing you wished to receive on this specimen, please contact the [facility] Services Department to clarify the test order. We appreciate your business. 02/13/2025 12:0 9 PM EDT 02/13/2025 Chaparro Arroyo MD LAB BLOOD ORDERABLES Final Re sult Performing Organization Address [facility] Co de Phone Number [facility] [address] [place] [address] * Protein, Total, Random Urine w/Creatinine (Protein/Creat Ratio) (02/13/2025 12:09 PM EDT) Creatinine, Ur 74.9 Not Estab. mg/dL [facility] Protein, Ur 13.1 Not Estab. mg/dL [facility] Urine Protein/Creatin ine Ratio 175 0 - 200 mg/g creat [facility] 02/13/2025 12:0 9 PM EDT 02/13/2025 Chaparro Arroyo MD LAB URINE ORDERABLES Final Re sult Performing Organization Address [facility] Co de Phone Number [facility] [address] [place] [address] * Vitamin D 25 Hydroxy (02/13/2025 12:09 PM EDT) Vitamin D, 25-OH, Total 40.8 30.0 - 100.0 ng/mL [facility] Comment: Vitamin D deficiency has been defined by the [place]eb[place]ts of Medicine and an Endocrine Society practice guideline as a level of serum 25-OH vitamin D less than 20 ng/mL (1,2). The Endocrine Society went on to further define vitamin D insufficiency as a level between 21 and 29 ng/mL (2). 1. IOM ([place]ts of Medicine). 2010. Dietary reference intakes for calcium and D. [place]: The National Academies Press. 2. Mikaela MF, Chris ARDON, Elle VIDAL, et al. Evaluation, treatment, and prevention of vitamin D deficiency: an Endocrine Society clinical practice guideline. JCEM. 2010; 96(7):1911-30. 02/13/2025 12:0 9 PM EDT 02/13/2025 Chaparro Arroyo MD LAB BLOOD ORDERABLES Final Re sult [facility] [address] [place] [address] * Uric Acid (02/13/2025 12:09 PM EDT) Uric Acid 4.8 3.8 - 8.4 mg/dL [facility] Comment:Therapeutic target f or gout patients: <6.0 02/13/2025 12:0 9 PM EDT 02/13/2025 us Chaparro Arroyo MD LAB BLOOD ORDERABLES Final Re sult Performing Organization Address City/[facility]/ZIP Co de Phone Number [facility] [address] [place] [address] * (ABNORMAL) Phosphorus (02/13/2025 12:09 PM EDT) Phosphorus 2.7(L) 2.8 - 4.1 mg/dL [facility] 02/13/2025 12:0 9 PM EDT 02/13/2025 us Chaparro Arroyo MD LAB BLOOD ORDERABLES Final Re sult Performing Organization Address City/[facility]/ZIP Co de Phone Number [facility] [address] [place] [address] * PTH, Intact (02/13/2025 12:09 PM EDT) Pathologist [facility] PTH 32 15 - 65 pg/mL [facility] 02/13/2025 12:0 9 PM EDT 02/13/2025 Chaparro Arroyo MD LAB BLOOD ORDERABLES Final Re sult Performing Organization Address City/[facility]/ZIP Co de Phone Number [facility] [address] [place] [address] * Magnesium (02/13/2025 12:09 PM EDT) [facility] Magnesium 2.3 1.6 - 2.3 mg/dL [facility] 02/13/2025 12:0 9 PM EDT 02/13/2025 Chaparro Arroyo MD LAB BLOOD ORDERABLES Final Re sult Performing Organization Address City/[facility]/ZIP Co de Phone Number [facility] [address] [place] [address] * (ABNORMAL) Comprehensive Metabolic Panel (02/13/2025 12:09 PM EDT) Pathologist [facility] Glucose 84 70 - 99 mg/dL [facility] BUN 24 8 - 27 mg/dL [facility] Creatinine 1.54(H) 0.76 - 1.27 mg/dL [facility] eGFR CKD-EPI CR 2020 46(L) >59 mL/min/1.7 3 [facility] BUN/Creatinine Ratio 16 10 - 24 [facility] Sodium 137 134 - 144 mmol/L [facility] Potassium 4.1 3.5 - 5.2 mmol/L [facility] Chloride 99 96 - 106 mmol/L [facility] Bicarbonate (CO2) 22 20 - 29 mmol/L [facility] Calcium 10.7(H) 8.6 - 10.2 mg/dL [facility] Total Protein 7.3 6.0 - 8.5 g/dL [facility] Albumin 4.5 3.8 - 4.8 g/dL [facility] Globulin 2.8 1.5 - 4.5 g/dL [facility] Total Bilirubin 0.6 0.0 - 1.2 mg/dL [facility] Alkaline Phosphatase 102 49 - 135 IU/L [facility] Comment:Please note refere nce interval change AST (SGOT) 27 0 - 40 IU/L [facility] ALT (SGPT) 22 0 - 44 IU/L [facility] 02/13/2025 12:0 9 PM EDT 02/13/2025 us Chaparro Arroyo MD LAB BLOOD ORDERABLES Final Re sult [facility] [address] [place] [address] from Last 3 Months Insurance [facility] Care Teams Knifeman Relationship Specialty Start Date End Date Jamal Benson MD [address] [place] [address] PCP - General Internal Medicine 08/17/24
--- OUTSIDE RECORDS SUMMARY | 2025-04-07 06:30 | XMS_ITS | Clinical Summary ---
Author Organization [address] [place] [address] [place] [phone] Phone Care Team Providers Care Principal Archaeologist Name Role Phone Jamal Benson MD Primary Care Provider +1- [phone] Allergies No known active allergies Medications allopurinoL (ZYLOPRIM) 300 mg tablet Take 1 tablet (300 mg total) by mouth 1 (one) time each day. Active atorvastatin (LIPITOR) 20 mg tablet Take 1 tablet (20 mg total) by mouth 1 (one) time each day. Active fenofibrate (TRICOR) 48 mg tablet Take 1 tablet (48 mg total) by mouth 1 (one) time each day. Active finasteride (PROSCAR) 5 mg tablet Take 1 tablet (5 mg total) by mouth 1 (one) time each day. at bedtime Active hydroCHLOROthia zide (HYDRODIURIL) 25 mg tablet Take 1 tablet (25 mg total) by mouth 1 (one) time each day. Active KRILL OIL ORAL Take 750 mg by mouth 1 (one) time each day. Active levothyroxine sodium (TIROSINT) 75 mcg capsule daily. 06/13/2020 Active omeprazole (PRILOSEC) 20 mg tablet,delayed release (DR/EC) daily. 06/06/2020 Act hannah multivitamin with minerals (Multiple Vitamin-Mineral s) tablet Take by mouth. 06/06/2020 Active cholecalciferol (VITAMIN D-3) 50 mcg (2,000 unit) capsule Take by mouth. Active empagliflozin (Jardiance) 10 mg tablet TAKE 1 TABLET BY MOUTH DAILY 90 tablet 3 08/05/2024 Active apixaban (ELIQUIS) 5 mg tablet Take 1 tablet (5 mg total) by mouth 2 (two) times a day. 180 tablet 3 10/28/2024 Active atenoloL (TENORMIN) 25 mg tablet Take 1 and 1/2 tablets by mouth daily 135 tablet 3 10/28/2024 Active tamsulosin (FLOMAX) 0.4 mg 24 hr capsule Take 1 capsule (0.4 mg total) by mouth 1 (one) time each day. 11/24/2024 Active Active Problems Problem Noted Date Diagnosed Date CAD (coronary artery disease) 04/27/2024 Overview (02/06/2025): - Nuclear stress test performed for unclear reasons in January 2021-there was normal perfusion but there was increased TID 1.36 - Status post coronary CT angiography in May 2021 showing 25 to 49% long tubular stenosis of the proximal LAD with 50 to 69% stenosis in the mid to distal LAD, moderate calcific stenosis of the proximal circumflex extending to a large OM 2 with what appears to be a 70% focal stenosis, nonobstructive disease in the RCA though there was heavy calcification with positive remodeling, minimal calcific plaque in the left main - Status post exercise stress echocardiogram in July 2022-the patient exercised for 6 minutes and 43 seconds on a Sarmad protocol to 97% of max predicted heart rate without chest pain or ECG evidence of ischemia, there was no echocardiographic evidence of ischemia or infarction Assessment & Plan (07/14/2024 9:27 AM EST): [...] will touch base with Dr. Arroyo his nanotechnologist just to update him. I also encouraged [...] verbalized understanding. Aortic valve stenosis 01/11/2021 Overview (02/06/2025): - On 06/2024 Echo - Left ventricle [...] average of 120/74 mmHg performed by his nanotechnologist in July 2023. Continue current medications. Assessment [...] aerobic exercise as tolerated. Persistent atrial fibrillation (CMS/HCC V24, CMS /HCC V28) 04/23/2020 Overview (04/27/2024): - Rate controlled and [...] Encounters Date Type Department Care Team Description 01/16/2025 8:50 AM EDT Office Visit [facility] - [address] [place] [address] Aracelis Bryant MD Coronary artery disease involving [place] coronary artery of [place] heart with other form of angina pectoris (CMS/HCC V24) (Primary Dx); Nonrheumatic aortic valve stenosis; Primary hypertension; Persistent atrial fibrillation (CMS/HCC V24, CMS/HCC V28); Hyperlipidemia, unspecified hyperlipidemia type from Last 3 Months Immunizations Immunization Administration Dates Next Due Pfizer SARS-CoV-2 COVID-19, [...] Sign Reading Time Taken Comments Blood Pressure 138/80 01/16/2025 8:41 AM EDT Pulse 65 01/16/2025 8:41 AM EDT Temperature - - Respiratory Rate - - Oxygen Saturation 99% 01/16/2025 8:41 AM EDT Inhaled Oxygen Concentration - - Weight 81.6 kg (180 lb) 01/16/2025 8:41 AM EDT Height 170.2 cm (5' 7 ) 01/16/2025 8:41 AM EDT Body Mass Index 28.19 01/16/2025 8:41 AM EDT Plan of Treatment Upcoming Encounters Date Type Department Care Team (Late st Contact Info) Description 07/19/2025 8:00 AM EST Ancillary Procedure [facility] - [facility] [address] [place] [address] Health Maintenance Due Date Last Done Comments Pneumococcal Vaccine: 50+ Years (1 of 2 - PCV) 1964 Zoster Vaccines (1 of 2) 1995 RSV Immunization Adult Patients (1 - 1-dose 75+ series) 2020 Falls Risk Assessment 05/04/2022 Hepatitis C Screening 05/04/2022 Medicare Annual Wellness Visit 05/04/2022 Social Influencers of Health Screening 05/04/2022 Depression Screening 06/01/2024 COVID-19 Vaccine ( season) 2025 03/27/2021, 06/26/2020, 06/05/2020 Influenza Vaccine (#1) 2025 , 03/26/2022, 05/01/2021, Additional history exists Hypertension/CHF/CAD Annual BMP Blood Test 07/29/2025 07/29/2024, 07/29/2024, 01/13/2024, Additional history exists Cholesterol Screening (Lipid Panel) 01/12/2029 01/13/2024 DTaP,Tdap,and Td Vaccines (3 - Td or Tdap) 11/29/2034 11/29/2024, 02/25/2015 HIB Vaccines Aged Out No longer eligi [...] age to complete this topic Meningococcal B Vaccine Aged Out No l onger eligible based on patient's age to complete this topic RSV Immunization Patients Under 20 months Aged Out No longer eligible based on patient's age to complete this topic Varicella Vaccines Aged Out No longer eligible based on patient's age to complete this topic Procedures Procedure Name Priority Date/Time Associated Diagnosis Comments ECG 12-LEAD Routine 01/16/2025 8:54 AM EDT Coronary artery disease involving [place] coronary artery of [place] heart with other form of angina pectoris (CMS/HCC V24) ANNUAL BMP BLOOD TEST Routine 01/13/2024 LIPID PANEL Routine 01/13/2024 from Last 3 Months or Most Recently Relevant to Health Maintenance Results * ECG 12 lead (01/16/2025 8:54 AM EDT) Ventricular Rate ECG 65 BPM GEMUSE Atrial Rate 260 BPM GEMUSE QRS Duration 86 ms GEMUSE Q-T Interval 408 ms GEMUSE QTc 424 ms GEMUSE P Wave Valders 108 degrees GEMUSE R Valders 60 degrees GEMUSE T Valders 49 degrees GEMUSE ECG Interpretation Atrial flutter with 4:1 A-V conduction Nonspecific ST abnormality Abnormal ECG When compared with ECG of 14-JUL-2024 08:38, No significant change was found Confirmed by ARACELIS BRYANT ([id number]) on 01/16/2025 11:20:33 AM GEMUSE 01/16/2025 8:54 AM EDT 01/16/2025 11:20 AM EDT Aracelis Bryant MD ECG ORDERABLES Final Result GEMUSE * Annual BMP Blood Test (01/13/2024) Pathologist [facility] Annual BMP Blood Test abstracted Historical Provider HEALTH MAINTENANCE Final Result * Lipid panel (01/13/2024) Pathologist [facility] LDL/HDL Ratio 0 Comment:no interpretation, a bstracted [...] [employer] [place] [employer] Care Teams Principal Archaeologist Relationship Specialty Start Date End Date Jamal Benson MD [facility] [address] [place] [address] [address] [facility] [place] [id number] PCP - General Internal Medicine 06/27/24
[2025-04-07 07:15] LABS: Hematocrit 49.1 % (42.0-52.0); Hemoglobin 16.5 g/dl (14.0-18.0); Mean Corpuscular HGB Conc 33.6 g/dl (31.0-36.0); Mean Corpuscular Hemoglobin 31.1 pg (27.0-33.0); Mean Corpuscular Volume 92.6 fL (80.0-98.0); NRBC Abs Auto 0.000 X10*3/uL (0.0-0.012); NRBC Pct Auto 0.0 /100WBC (0.0-0.2); Platelet Count 128 X10*3/uL (160-400); Red Blood Count 5.30 X10*6/uL (4.60-5.80); White Blood Count 8.2 X10*3/uL (4.8-10.8)
[2025-04-07 07:40] LABS: Appearance Urine Clear; Glucose Urine UA >=1000 mg/dL (Negative); PH 6.0 (5.0-9.0); Specific Gravity - Urine 1.020 (1.005-1.025); UMIC TRIGGER UA YES
[2025-04-07 08:04] LABS: Alanine Aminotransferase 40 U/L (0-40); Albumin Level 4.8 g/dL (3.5-5.0); Alkaline Phosphatase 88 U/L (39-117); Anion Gap 11 (12-20); Aspartate Amino Transferase 36 U/L (5-37); Blood Urea Nitrogen 33 mg/dL (9-16); Calcium 10.6 mg/dL (8.4-10.2); Carbon Dioxide 30 mmol/L (22-29); Chloride 103 mmol/L (96-108); Cholesterol 156 mg/dL (<200); Estimated Glomerular Filt Rate 41; HDL Cholesterol 38 mg/dL (>40); Potassium 4.2 mmol/L (3.3-5.1); Sodium 140 mmol/L (135-145); Total Protein 7.6 g/dL (6.5-8.0); Triglycerides 259 mg/dL (<150)
[2025-04-07 08:25] LABS: Thyroid Stimulating Hormone 1.37 uIU/mL (0.32-4.0)
== END 2025-04-07 06:29 | disposition home or self-care (01) ==
LOC: HO.XRAY 06:28
PROVIDERS: PCP Internal Medicine; Visit Provider Internal Medicine
DX: I10 Essential (primary) hypertension (principal); S43.402A Unspecified sprain of left shoulder joint, initial encounter
CPT/HCPCS: 36415; 73030; 80048; 80061; 80076; 81001; 84443; 85027

== ENCOUNTER → 2025-04-07 06:48 | Outpatient (BNV) | payer MEDICARE, SELFPAY | PROVIDERS: PCP Internal Medicine; Visit Provider Radiology Diagnostic Radiology | DX: S43.402A Unspecified sprain of left shoulder joint, initial encounter (principal); M19.012 Primary osteoarthritis, left shoulder | CPT/HCPCS: 73030 ==

== ENCOUNTER 2025-05-31 10:30 | Outpatient (REF) | payer MEDICARE, SELFPAY ==
--- NOTE | ~2025-05-31 | XR_ITS ---
EXAMINATION: XR KNEE, RIGHT CLINICAL INFORMATION: S83.91XA - Sprain of unspecified site of right knee, initial encounter; right medial knee pain x months. COMPARISON: None available. TECHNIQUE: Three views of the right knee. FINDINGS: No fracture, dislocation, or suspicious bone lesion. There is normal alignment. There is mild tricompartmental joint space narrowing. There is subtle chondrocalcinosis noted in the medial lateral compartments. There is mild spurring of the tibial spines. There is mild superior patellar enthesopathic spurring. No abnormal patellar tilt. There is a large suprapatellar joint effusion. No soft tissue abnormalities aside from mild vascular calcifications. XR/XR knee RT 3V IMPRESSION: 1. No acute bony abnormalities. 2. Large suprapatellar joint effusion. 3. Chondrocalcinosis suggesting CPPD. 4. Mild tricompartmental joint space narrowing. Electronically signed by: Aaron Garza MD 05/31/2025 01:06 PM [facility]
--- OUTSIDE RECORDS SUMMARY | 2025-05-31 11:47 | XMS_ITS | Clinical Summary ---
Author Organization [address] [place] [address] [place] [phone] Phone Care Team Providers Care Fisher Terrapin Name Role Phone Jamal Benson MD Primary Care Provider +1- [phone] Allergies No known active allergies Medications allopurinoL [...] MOUTH DAILY 90 tablet 3 08/05/2024 Active atenoloL (TENORMIN) 25 mg tablet Take 1 and 1/2 tablets by mouth daily 135 tablet 3 10/28/2024 Active tamsulosin (FLOMAX) 0.4 mg 24 hr capsule Take 1 capsule (0.4 mg total) by mouth 1 (one) time each day. 11/24/2024 Active apixaban (Eliquis) 5 mg tablet TAKE 1 TABLET(5 MG) BY MOUTH TWICE DAILY 180 each 04/24/2025 Active Active Problems Problem Noted Date Diagnosed [...] will touch base with Dr. Arroyo his sales enablement analyst just to update him. I also encouraged [...] average of 120/74 mmHg performed by his sales enablement analyst in July 2023. Continue current medications. Assessment [...] Encounters Date Type Department Care Team Description 2025 Telephone [facility] - [address] [place] [address] Aracelis Jacobo MD from Last 3 Months Immunizations Immunization Administration [...] Description 07/19/2025 8:00 AM EST Ancillary Procedure [facility] - [address] [place] [address] Health Maintenance Due Date Last Done Comments Pneumococcal Vaccine: 50+ Years (1 of 2 - PCV) 1964 Zoster Vaccines (1 of 2) 1995 RSV Immunization Adult Patients (1 - 1-dose 75+ series) 2020 Falls Risk Assessment 05/04/2022 Medicare Annual Wellness Visit 05/04/2022 Social [...] Procedure Name Priority Date/Time Associated Diagnosis Comments ANNUAL BMP BLOOD TEST Routine 01/13/2024 LIPID PANEL Routine 01/13/2024 from Last 3 Months or Most Recently Relevant to Health Maintenance Results * Annual BMP Blood Test (01/13/2024) Pathologist [facility] Annual BMP Blood Test abstracted Historical Provider HEALTH MAINTENANCE Final Result * Lipid panel (01/13/2024) Pathologist [facility] LDL/HDL Ratio 0 Comment:no interpretation, a bstracted Triglycerides 0 mg/dL Comment:no interpretation, a bstracted Cholesterol 0 mg/dL Comment:no interpretation, a bstracted HDL 0 mg/dL Comment:no interpretation, a bstracted LDL Cholesterol 0 mg/dL Comment:no interpretation, a bstracted Blood Venous blood specimen / Unknown Historical Provider LAB BLOOD ORDERABLES Amry l Result from Last 3 Months or Most Recently Relevant to Health Maintenance Insurance [employer] [place] Care Teams Fisher Terrapin Relationship Specialty Start Date End Date Jamal Benson MD [facility] [address] [place] [address] [address] [place] [address] PCP - General Internal Medicine 06/27/24
--- OUTSIDE RECORDS SUMMARY | 2025-05-31 11:47 | XMS_ITS | Clinical Summary ---
Author Organization [facility] Address [address] [place] [phone] Phone Care Team Providers Care Chairlift Operator Name Role Phone Jamal Benson MD Primary Care Provider + Allergies No known active allergies Medications atenolol (TENORMIN) 25 MG tablet Take 1.5 tablets by mouth 1 (one) time each day Active atorvastatin (LIPITOR) 20 MG tablet Take 1 tablet by mouth at bed time Active Krill Oil ([place]-3) 500 MG capsule Active levothyroxine (SYNTHROID, LEVOTHROID) [...] by mouth at bed time 2 Active Cholecalciferol 50 MCG (1999) capsule Take by mouth Active Jardiance 10 MG tablet Take 10 mg by mouth 1 (one) time each day 4 Active aspirin (ST SUE) 81 MG EC tablet Take 81 mg by mouth in the morning. Active allopurinol (ZYLOPRIM) 300 MG tablet TAKE 1 TABLET BY MOUTH EVERY DAY 90 tablet 3 5 Active fenofibrate (TRICOR) 48 MG tablet Take 1 tablet (48 mg total) by mouth 1 (one) time each day 90 tablet 3 5 Active colchicine 0.6 MG tablet Take two tabs at the onset of gout. Then take 1 tabled 12 hours later. Then one tablet daily for 4 days. Then stop 21 tablet 3 5 Active hydroCHLOROthia zide 12.5 MG tablet TAKE 1 TABLET(12.5 MG) BY MOUTH EVERY DAY 90 tablet 3 5 Active Flomax 0.4 MG 24 hr capsule Take 1 capsule (0.4 mg total) by mouth 1 (one) time each day 90 capsule 3 5 Active Flomax 0.4 MG 24 hr capsule Take 1 capsule (0.4 mg total) by mouth 1 (one) time each day 90 capsule 3 5 05/24/20 25 Discontinu ed(Reorder (does not appear on AVS)) Flomax 0.4 MG 24 hr capsule Take 1 capsule (0.4 mg total) by mouth 1 (one) time each day 90 capsule 3 5 05/29/20 25 Discontinu ed(Reorder (does not appear on AVS)) Active Problems Problem Noted Date Diagnosed Date [...] 08/21/2021 Dyslipidemia 08/21/2021 Abnormal cardiovascular function study 1 05/06/2023 Overview (05/06/2023): Last Assessment & Plan: [...] given his recent Holter monitor. Glomerulonephritis 08/14/2020 2 Preprocedural cardiovascular examination done 06/27/19 21 05/06/2023 [...] Encounters Date Type Department Care Team Description 05/29/2025 [facility] [address] [facility] [address] [place] [address] Mishel Lemus 05/24/2025 Refill [facility] [address] [facility] [address] [place] [address] Mishel Lemus 03/25/2025 Refill [facility] [address] [place] [address] Chaparro Arroyo MD from Last 3 Months Immunizations Immunization [...] Office Visit [facility] [address] [phone] Chaparro Arroyo MD [address] [phone] Health Maintenance Due Date Last Done Comments Pneumococcal Vaccine: 50+ Years (1 of 2 - PCV) 1964 Influenza Vaccine (#1) 2025 0, 03/30/2019, 03/01/2019, Additional history exists Hepatitis B Vaccine Aged Out No longe r eligible based on patient's age to complete this topic [place] [address] [facility] Care Teams Chairlift Operator Relationship Specialty Start Date End Date Jamal Benson MD [facility] [address] [place] [address] [address] PCP - General Internal Medicine 08/17/24
--- OUTSIDE RECORDS SUMMARY | 2025-05-31 11:47 | XMS_ITS | Encounter Summary ---
Author Organization [facility] Address [address] [phone] Phone Care Team Providers Care Gluing Crew Leader Name Role Phone Jamal Benson MD Primary Care Provider + Reason for Visit * Reason Onset Date Comments Med Refill 05/24/2025 Encounter Details Date Type Department Care Team (Late Contact Info) Description 05/24/2025 Refill [facility] [address] [phone] Mishel Lemus [address] [phone] Social History Tobacco Use Types Packs/Day Years [...] Encounters Date Type Department Care Team (Late Contact Info) Description 08/17/2025 8:20 AM EDT Office Visit [facility] [address] [phone] Chaparro Arroyo MD [address] [phone] documented as of this encounter Visit Diagnoses Not on filedocumented in this encounter Care Teams Gluing Crew Leader Relationship Specialty Start Date End Date Jamal Benson MD [address] [place] [address] PCP - General Internal Medicine 08/17/24 documented as of this encounter
--- OUTSIDE RECORDS SUMMARY | 2025-05-31 11:47 | XMS_ITS | Encounter Summary ---
Author Organization [facility] Address [address] [phone] Phone Care Team Providers Care Barrel Endshake Adjuster Name Role Phone Jamal Benson MD Primary Care Provider + Reason for Visit * Reason Onset Date Comments Med Refill 05/29/2025 Encounter Details Date Type Department Care Team (Late Contact Info) Description 05/29/2025 Refill [facility] [address] [phone] Mishel Lemus [address] [phone] Social History Tobacco Use Types Packs/Day Years [...] Office Visit [facility] [address] [phone] Chaparro Arroyo MD [address] [phone] documented as of this encounter Visit Diagnoses Not on filedocumented in this encounter Care Teams Barrel Endshake Adjuster Relationship Specialty Start Date End Date Jamal Benson MD [address] [place] [address] PCP - General Internal Medicine 08/17/24 documented as of this encounter
== END 2025-05-31 10:31 | disposition home or self-care (01) ==
LOC: HO.XRAY 10:30
PROVIDERS: PCP Internal Medicine; Visit Provider Internal Medicine
DX: S83.91XA Sprain of unspecified site of right knee, initial encounter (principal)
CPT/HCPCS: 73562

== ENCOUNTER → 2025-05-31 10:34 | Outpatient (BNV) | payer MEDICARE, SELFPAY | PROVIDERS: PCP Internal Medicine; Visit Provider Radiology Diagnostic Radiology | DX: M17.11 Unilateral primary osteoarthritis, right knee (principal) | CPT/HCPCS: 73562 ==